=== PATIENT | female | born 1945 | race Caucasian/White ===

== ENCOUNTER → 2018-04-28 08:53 | Outpatient (CLI) | payer MEDICARE, SELFPAY ==
--- NOTE | 2018-04-28 09:02 | CA_ITS ---
PROCEDURE: 2-D M-mode and color Doppler study INDICATIONS FOR THE TEST: Chest pain COPD Heart Murmur Tobacco Smoking Palpitations Fatigue Syncope Edema+ Hypertension+Diabetes Mellitus Rheumatic Fever SOB + GONZALES Obesity Hyperlipidemia+ Family History HD Additional History PATIENT INFORMATION HEIGHT: 61 WEIGHT:175 GENDER: Female B/P:143/62 2-D/M-MODE INTERPRETATION: 2-D MEASUREMENTS OBSERVED VALUES IN CMS Right Ventricular Dimension (RVDd) 2.0 Interventricular Septum (Thickness)(IVsd) 1.3 Left Ventricular Internal Dimensions(LVIDd) 4.2 Left Ventricular Posterior Wall (Thickness)(LVPWd) 1.1 Aortic Root 2.9 Aortic Cusp Separation 1.7 Left Atrial Dimensions (LAD) 3.7 2D 1. Left atrium is qualitatively moderately enlarged, left ventricle is normal size, mild concentric left ventricular hypertrophy, visually estimated ejection fraction 55% with no regional wall motion abnormality. 2. The right atrium and right ventricle are normal size and contractility. 3. The aortic valve is thickened and calcified leaflet continue to display mobility. 4. The mitral valve has dense mitral calcification, there is no mitral stenosis. 5. The tricuspid valve is grossly normal. 6. The pulmonic valve is poorly visualized. 7. No significant pericardial effusion noted. DOPPLER INTERROGATION: Doppler interrogation of the aortic, mitral and tricuspid valvular presence of mild aortic, mild mitral and tricuspid regurgitation, tricuspid regurgitation jet velocity is inadequate for calculation of the right ventricular systolic pressure, grade 1 diastolic dysfunction seen with tissue Doppler evidence of raised left atrial pressure. CONCLUSION: 1. Moderately enlarged left atrium, normal left ventricular size, mild concentric left ventricular hypertrophy, visually estimated ejection fraction 55% with no regional wall motion abnormality, grade 1 diastolic dysfunction seen with tissue Doppler evidence of raised left atrial pressure. 2. Mild mitral and tricuspid regurgitation. 3. No significant pericardial effusion noted.
--- NOTE | 2018-04-28 09:02 | US_ITS ---
US Arterial Ankle Brachial Ind History: Bilateral rest pain, skin color changes of the toes ITS.REASON: discoloration in bilateral lower extremities ORDERING PHYSICIAN: Hal Love MD PATIENT AGE: 72 years TECHNIQUE: Segmental pressures obtained of both right and left leg. These are compared to brachial blood pressure to yield index at each level sampled including summary ANTOINE. The data sheets from the procedure are available in PACS FINDINGS Rest study only performed today No prior studies available for comparison. Blood pressures reported are in millimeters mercury. RIGHT LEG ANTOINE = 0.94. RIGHT LEG TBI=0.45 Brachial BP: 185 Thigh BP: 181 Calf BP: 174 Ankle PT: 174 Ankle DP : 184 Digit =83 LEFT LEG ANTOINE = 1.05 LEFT LEG TBI= 0.42 Brachial BPD: 180 Thigh BP: 176 Calf BP: 193 Ankle PT:194 Ankle DP: 178 Digit = 78 Pulses and waveforms: Normal IMPRESSION: The ABIs as reported above are within normal limits. Waveforms and pulses are also unremarkable. The TBI' s are low bilaterally suggesting small vessel disease
== END ==
PROVIDERS: PCP Internal Medicine; Visit Provider Internal Medicine
DX: G62.9 Polyneuropathy, unspecified (principal); I73.9 Peripheral vascular disease, unspecified; L81.9 Disorder of pigmentation, unspecified; R06.09 Other forms of dyspnea; I10 Essential (primary) hypertension; R00.2 Palpitations
CPT/HCPCS: 93306; 93922

== ENCOUNTER → 2020-07-01 07:51 | Outpatient (CLI) | payer MEDICARE, SELFPAY ==
--- NOTE | 2020-07-01 07:57 | US_ITS ---
APPROVED REPORT Exam Type: Lower Extremity Segmental Pressures Tobacco Packing Machine Operator: Alicia Santos RVT Indications Claudication: Bilaterally Non-healing Ulcer: Bilaterally Rest Pain: Bilaterally Numbness/Tingling ULCERS ELIZABETH 2ND TOES, PURPLE COLOR TO TIPS OF ELIZABETH GREAT TOES Risk Factors Hypertension Hyperlipidemia Obesity Pressures/Indices Right Indices Left Indices Brachial 160.00 mmHg Brachial 148.00 mmHg Low Thigh 169.00 mmHg 1.06 Low Thigh 172.00 mmHg 1.08 Calf 188.00 mmHg 1.18 Calf 181.00 mmHg 1.13 Ankle(PT) 161.00 mmHg 1.01 Ankle(PT) 162.00 mmHg 1.01 Ankle(DP) 173.00 mmHg 1.08 Ankle(DP) 148.00 mmHg 0.93 Digit 58.00 mmHg 0.36 Digit 44.00 mmHg 0.28 Findings RT ANTOINE:1.08 LT ANTOINE:1.01 RT TBI:0.36 LT TBI:0.28 NORMAL PULSES BILATERAL DAMPENED WAVEFORMS BILATERAL Conclusion RT ANTOINE:1.08 LT ANTOINE:1.01 RT TBI:0.36 LT TBI:0.28 NORMAL PULSES BILATERAL DAMPENED WAVEFORMS BILATERAL Low TBI suggesting small vessel disease Electronically signed by : Gianni Colon MD 07/01/2020 16:43:30
== END ==
PROVIDERS: PCP Internal Medicine; Visit Provider Internal Medicine
DX: I73.9 Peripheral vascular disease, unspecified (principal)
CPT/HCPCS: 93923

== ENCOUNTER → 2020-07-29 08:49 | Outpatient (POV) | payer MEDICARE, SELFPAY | PROVIDERS: Visit Provider Dermatology | DX: Z00.00 Encounter for general adult medical examination without abnormal findings (principal) ==

== ENCOUNTER → 2021-02-17 12:11 | Outpatient (CLI) | payer MEDICARE, SELFPAY ==
[2021-02-17 13:56] LABS: Basophils # 0.1 K/mm3 (0-0.2); Basophils % 1.3 % (0.1-2.0); Eosinophils # 0.5 K/mm3 (0.0-0.4); Eosinophils % 5.6 % (0.1-12.0); Hematocrit 37.4 % (37.0-47.0); Hemoglobin 12.2 g/dL (12.2-16.2); Lymphocytes # 2.4 K/mm3 (0.7-4.5); Lymphocytes % 27.5 % (10-50); Mean Corpuscular HGB Conc 32.6 g/dL (31.8-35.4); Mean Corpuscular Hemoglobin 30.4 pg (27.0-31.2); Mean Corpuscular Volume 93.3 fl (81-99); Mean Platelet Volume 9.7 fl (7.4-10.4); Monocytes # 0.5 K/mm3 (0.1-1.0); Monocytes % 5.7 % (1.7-9.3); Neutrophils # 5.2 K/mm3 (1.8-7.8); Platelet Count 297 K/mm3 (142-424); Red Blood Count 4.01 M/mm3 (4.20-5.40); Red Cell Distribution Width 13.4 % (11.5-17.5); White Blood Count 8.6 K/mm3 (4.8-10.8)
[2021-02-17 14:35] LABS: Chloride 100 mmol/L (98-107)
[2021-02-17 14:36] LABS: Potassium 4.1 mmoL/L (3.5-5.1); Sodium 139 mmol/L (136-145)
[2021-02-17 14:38] LABS: Alanine Aminotransferase 12 U/L (12-78); Albumin Level 3.9 g/dl (3.5-5.0); Albumin/Globulin Ratio 1.4 (1.1-1.8); Alkaline Phosphatase 95 U/L (38-126); Anion Gap 14.1 mEq/L (5-15); Aspartate Amino Transferase 24 U/L (14-36); Bilirubin,Total 0.2 mg/dl (0.2-1.3); Blood Urea Nitrogen 20 mg/dl (7-17); Carbon Dioxide 29 mmol/L (22.0-30.0); Cholesterol 269 mg/dl (140-200); Estimated Glomerular Filt Rate 70 ml/min (>60); GFR (African American) 84 ML/MIN (>60); Globulin 2.8 g/dL (1.3-3.2); Total Protein,Serum 6.7 g/dl (6.3-8.2); Triglycerides 248 mg/dl (30-150); VLDL Cholesterol 50 mg/dL (0-40)
[2021-02-17 14:39] LABS: Calcium 9.1 mg/dl (8.4-10.2); Chol/HDL Ratio 7.3 (1-3.5); Glucose 93 mg/dl (74-100); HDL Cholesterol 37 mg/dl (40-60)
== END ==
PROVIDERS: Visit Provider Internal Medicine
DX: I11.0 Hypertensive heart disease with heart failure (principal); I50.30 Unspecified diastolic (congestive) heart failure; E78.5 Hyperlipidemia, unspecified; M41.50 Other secondary scoliosis, site unspecified; G60.9 Hereditary and idiopathic neuropathy, unspecified
CPT/HCPCS: 80053; 80061; 85025

== ENCOUNTER → 2021-08-27 06:12 | Outpatient (CLI) | payer MEDICARE, SELFPAY ==
--- NOTE | 2021-08-27 | CA_ITS ---
APPROVED REPORT Exam: Pharmacologic Technologist: Manasa Gottlieb, Ht: 5 ft 0 in Wt: 159 lbs BSA: 1.69 m2 HR: 58 bpm BP: 151/60 mmHg Rhythm: sinus triston, T wave abn in leads 3, aVF Medical History Medical History: HTN Medications: Omeprazole,,,,, Carvedilol,,,,, AmiTRIPTYLINE,,,,, ReQUIP,,,,, Furosemide,,,,, Carbidopa levodopa,,,,, Ciclopirox,,,,, Cardiac Risk Factors: HTN, FHX of CAD Stress Test Details Test: LEXISCAN HR Resting HR: 61 bpm Max Heart Rate (APMHR): 142.605263 bpm Max HR Achieved: 74 bpm Target HR (85% APMHR): 120.294920 bpm % of APMHR: 52.11 Recovery HR: 71 bpm BP Resting BP: 151/60 mmHg Max BP: 157/59 mmHg Recovery BP: 154.0/59.0 mmHg ECG Resting ECG: sinus triston, T wave abn in leads 3, aVF Clinical Exercise duration: 04:03 min Highest Stage Achieved: Exercise capacity: 1.0 METs Stress ECG Conclusion During lexiscan pt experinced mild chest tightness, SOA, and CLEANING. No arrhythmias noted. No significant ST changes. Unremarkable lexiscan stress. Myoview images reported separately. Test Summary REST . . . . . . . Sitting REST 03:49 . . 61 . 151/ 60 . . Stage 1 01:00 . . 69 . . . . Stage 2 01:00 . . 74 . 140/ 55 . . Stage 3 01:00 . . 73 . . . . Stage 4 01:00 . . 72 . 148/ 57 . . Stage 4 01:03 . . 72 . 148/ 57 . Stop exercise at 04:03 RECOVERY 01:00 . . 71 . 142/ 60 . . RECOVERY 02:00 . . 69 . 142/ 60 . . RECOVERY 03:00 . . 69 . 154/ 59 . . RECOVERY 03:50 . . 68 . 157/ 59 . . Electronically signed by : Juno Iqbal MD 08/28/2021 10:41:21
--- NOTE | 2021-08-27 06:22 | NM_ITS ---
APPROVED REPORT Exam: Nuclear Stress Test Indication: short of breath Patient Location: Outpatient Stress Tech: Manasa FARAH Tech:DOM Denise RT(R)(N) Ht: 5 ft 0 in Wt: 156 lbs Bra Size: 40d HR: 61 bpm BP: 151/60 mmHg BSA: 1.68 m2 TID: 61 Procedure: Patient received a 0.4 mg of intravenous Lexiscan, resting heart rate 61 bpm, resting blood pressure 151/60 mmHg, with Lexiscan maximum heart rate achived was 74 bpm which is Less than 85 % of the maximum predicted heart rate and blood pressure was 157/59 mmHg. With Lexiscan, patient denied any complaint of chest pain. Electrocardiogram Resting electrocardiogram shows sinus rhythm, with Lexiscan there is less than 1.[address] segment depression noted from the baseline EKG. The EKG portion of the Lexiscan is nondiagnostic. Cardiac Stress and Resting SPECT Images: Cardiac Stress and Resting SPECT images were obtained using technetium 99m Myoview 30.6 mCi stress and 9.88 mCi at rest. Gated SPECT analysis of segmental wall motion and calculation of the ejection fraction also done. Prone images were not obtained. Cardiac stress and rest SPECT images show uniform myocardial activity without segmental perfusion abnormality, computer derived ejection fraction is 65% with no regional wall motion abnormality, right ventricle is normal size and contractility. Conclusion: 1. The EKG portion of the Lexiscan is nondiagnostic. 2. No scintigraphic evidence of reversible ischemia seen, computer derived ejection fraction is over 65% with no regional wall motion abnormality, right ventricle is normal size and contractility. 3. Normal Lexiscan Myoview study. Electronically signed by : Juno Iqbal MD 08/28/2021 10:43:42
--- NOTE | 2021-08-27 08:42 | CA_ITS ---
APPROVED REPORT EXAM: Comprehensive 2D, Doppler, and color-flow Echocardiogram [employer] Founder: Farhana Barnes CRT Ht: 5 ft 0 in Wt: 159lbs BSA: 1.69 BP: 158/72 mmHg Indications: Congestive Heart Failure, Shortness of Breath, Hyperlipidemia, Hypertension/HDD 2D Dimensions LVOT 1.60 cm (M/F) 1.5-2.5 LA Volume 53.50 mL LA Volume Index 31.70 mL/m2 (M/F) 16-34 M-Mode Dimensions RVDd 2.69 cm (0.9-2.6) LA Diam 3.86 cm (1.9-4.0) LVDd 4.72 cm (3.5-5.7) Ao Diam 3.27 cm (2.0-3.7) LVDs 3.15 cm (3.5-5.7) IVSd 1.27 cm (0.6-1.1) PWd 0.62 cm (0.6-1.1) EF (Teich) 61.90% FS 33.30% EDV (Teich) 103.40 mL TAPSE 1.94 (<1.7) ESV (Teich) 39.40 mL LV Diastology E Decel Time 380.00 (160-240 msec) E/A Ratio 0.47 MED E' 4.70 (< 7 cm/sec) MED A' 7.90 cm/s E'/MED E' Ratio 15.51 (>14) LAT E' 5.60 (<10 cm/sec) LAT A' 8.40 cm/s E/LAT E' Ratio 13.02 (>14) Aortic Valve AI PHT 566.00 ms AO Peak GR. 9.40 mmHg Mitral Valve MV A Velocity 155.00 (40-130 cm/s) E/A Ratio 0.47 MV Decel. Time 380.00 (160-240 ms) Pulmonary Valve PV Peak Velocity 70.00 (50-150 cm/s) Tricuspid Valve TR P. Velocity 197.00 cm/s RAP Estimate 10.00 mmHg RVSP 25.60 mmHg Left Ventricle Left atrium is mildly enlarged, left ventricle is normal size, mild concentric left ventricular hypertrophy, estimated ejection fraction 55% with no regional wall motion abnormality, grade 1 diastolic dysfunction seen without tissue Doppler evidence of raise left atrial pressure. Right Ventricle Right atrium and right ventricle are normal size and contractility. Aortic Valve Aortic valve is thickened and calcified without aortic stenosis, there is trace aortic insufficiency. Mitral Valve Mitral valve has mitral calcification, there is no mitral stenosis, there is mild mitral regurgitation. Tricuspid Valve Tricuspid valve grossly normal, there is mild tricuspid regurgitation, tricuspid regurgitation jet velocity is inadequate for calculation of the right ventricular systolic pressure. Pulmonic Valve Pulmonic valve is poorly visualized. Great Vessels Aortic root is normal size. Inferior vena cava normal size with normal inspiratory collapse. Pericardium No significant pericardial effusion noted. Conclusion 1. Normal left ventricular size, mild concentric left ventricular hypertrophy, estimated ejection fraction 55% with no regional wall motion abnormality, grade 1 diastolic dysfunction seen without tissue Doppler evidence of raise left atrial pressure. 2. Thickened and calcified aortic valve without aortic stenosis, there is trace aortic insufficiency. 3. Mild mitral and tricuspid regurgitation. 4. No significant pericardial effusion noted. 5. Inferior vena cava normal size with normal inspiratory collapse. Electronically signed by : Juno Iqbal MD 08/28/2021 13:28:28
== END ==
PROVIDERS: PCP Internal Medicine; Visit Provider Nurse Practitioner Family
DX: R06.09 Other forms of dyspnea; I50.21 Acute systolic (congestive) heart failure
CPT/HCPCS: 78452; 93017; 93306; A9502; J2785

== ENCOUNTER → 2022-06-29 09:53 | Outpatient (CLI) | payer MEDICARE, SELFPAY ==
[2022-06-29 10:40] LABS: Basophils # 0.1 K/mm3 (0-0.2); Basophils % 1.2 % (0.1-2.0); Eosinophils # 0.4 K/mm3 (0.0-0.4); Eosinophils % 4.1 % (0.1-12.0); Hematocrit 41.2 % (37.0-47.0); Hemoglobin 13.1 g/dL (12.2-16.2); Lymphocytes # 2.2 K/mm3 (0.7-4.5); Lymphocytes % 23.9 % (10-50); Mean Corpuscular HGB Conc 31.7 g/dL (31.8-35.4); Mean Corpuscular Hemoglobin 28.9 pg (27.0-31.2); Mean Corpuscular Volume 91.4 fl (81-99); Mean Platelet Volume 8.4 fl (7.4-10.4); Monocytes # 0.5 K/mm3 (0.1-1.0); Monocytes % 5.6 % (1.7-9.3); Neutrophils % 65.2 % (37.0-80.0); Platelet Count 335 K/mm3 (142-424); Red Blood Count 4.51 M/mm3 (4.20-5.40); Red Cell Distribution Width 13.3 % (11.5-17.5); White Blood Count 9.3 K/mm3 (4.8-10.8)
[2022-06-29 11:07] LABS: Alanine Aminotransferase 18 U/L (12-78); Albumin Level 4.4 g/dl (3.5-5.0); Alkaline Phosphatase 133 U/L (38-126); Anion Gap 13.2 mEq/L (5-15); Aspartate Amino Transferase 27 U/L (14-36); Bilirubin,Indirect 0.6 mg/dL (0.0-0.9); Bilirubin,Total 0.6 mg/dl (0.2-1.3); Bilirubin,Unconjugated 0.6 mg/dL (0.0-1.1); Blood Urea Nitrogen 17 mg/dl (7-17); Carbon Dioxide 27 mmol/L (22.0-30.0); Chloride 101 mmol/L (98-107); Chol/HDL Ratio 5.7 (1-3.5); Cholesterol 285 mg/dl (140-200); Estimated Glomerular Filt Rate 81 ml/min (>60); GFR (African American) 98 ML/MIN (>60); Glucose 90 mg/dl (74-100); HDL Cholesterol 50 mg/dl (40-60); Magnesium 1.9 mg/dl (1.6-2.3); Potassium 4.2 mmoL/L (3.5-5.1); Sodium 137 mmol/L (136-145); Total Protein,Serum 7.2 g/dl (6.3-8.2); Triglycerides 233 mg/dl (30-150); VLDL Cholesterol 47 mg/dL (0-40)
[2022-06-29 11:18] LABS: Direct LDL Cholesterol 178.55 mg/dL (100-129)
[2022-06-29 11:22] LABS: Free T4 (Free Thyroxine) 1.07 ng/dl (0.78-2.19)
[2022-06-29 11:36] LABS: Thyroid Stimulating Hormone 2.35 uIU/mL (0.465-4.68)
== END ==
PROVIDERS: PCP Internal Medicine; Visit Provider Nurse Practitioner
DX: E78.2 Mixed hyperlipidemia (principal); I10 Essential (primary) hypertension; I50.33 Acute on chronic diastolic (congestive) heart failure
CPT/HCPCS: 36415; 80048; 80061; 80076; 83735; 84439; 84443; 85025

== ENCOUNTER → 2022-10-22 13:01 | Outpatient (CLI) | payer MEDICARE, SELFPAY ==
[2022-10-22 15:56] LABS: Basophils % 0.4 % (0.1-2.0); Eosinophils # 0.7 K/mm3 (0.0-0.4); Hematocrit 38.4 % (37.0-47.0); Hemoglobin 12.3 g/dL (12.2-16.2); Lymphocytes # 2.7 K/mm3 (0.7-4.5); Lymphocytes % 28.7 % (10-50); Mean Corpuscular HGB Conc 31.9 g/dL (31.8-35.4); Mean Corpuscular Hemoglobin 28.4 pg (27.0-31.2); Mean Corpuscular Volume 88.9 fl (81-99); Mean Platelet Volume 10.5 fl (7.4-10.4); Monocytes # 0.6 K/mm3 (0.1-1.0); Neutrophils # 5.4 K/mm3 (1.8-7.8); Neutrophils % 57.9 % (37.0-80.0); Platelet Count 290 K/mm3 (142-424); Red Blood Count 4.32 M/mm3 (4.20-5.40); Red Cell Distribution Width 14.4 % (11.5-17.5); White Blood Count 9.3 K/mm3 (4.8-10.8)
[2022-10-22 16:24] LABS: Alanine Aminotransferase 11 U/L (12-78); Albumin Level 4.2 g/dl (3.5-5.0); Albumin/Globulin Ratio 1.4 (1.1-1.8); Alkaline Phosphatase 131 U/L (38-126); Anion Gap 12.6 mEq/L (5-15); Aspartate Amino Transferase 28 U/L (14-36); Bilirubin,Total 0.5 mg/dl (0.2-1.3); Blood Urea Nitrogen 23 mg/dl (7-17); Calcium 8.9 mg/dl (8.4-10.2); Carbon Dioxide 27 mmol/L (22.0-30.0); Chloride 104 mmol/L (98-107); Chol/HDL Ratio 6.5 (1-3.5); Cholesterol 286 mg/dl (140-200); Estimated Glomerular Filt Rate 60 ml/min (>60); GFR (African American) 73 ML/MIN (>60); Globulin 2.9 g/dL (1.3-3.2); Glucose 73 mg/dl (74-100); HDL Cholesterol 44 mg/dl (40-60); Potassium 4.6 mmoL/L (3.5-5.1); Sodium 139 mmol/L (136-145); Total Protein,Serum 7.1 g/dl (6.3-8.2); Triglycerides 228 mg/dl (30-150); VLDL Cholesterol 46 mg/dL (0-40)
[2022-10-22 16:35] LABS: Direct LDL Cholesterol 189.33 mg/dL (100-129)
[2022-10-22 16:41] LABS: 25-OH Vitamin D, Total 37.3 ng/mL (30-100)
== END ==
PROVIDERS: PCP Internal Medicine; Visit Provider Internal Medicine
DX: I50.32 Chronic diastolic (congestive) heart failure (principal); E55.9 Vitamin D deficiency, unspecified; I10 Essential (primary) hypertension; E78.5 Hyperlipidemia, unspecified; G60.9 Hereditary and idiopathic neuropathy, unspecified; G25.81 Restless legs syndrome; M15.0 Primary generalized (osteo)arthritis; M41.50 Other secondary scoliosis, site unspecified
CPT/HCPCS: 80053; 80061; 82306; 85025

== ENCOUNTER → 2023-04-13 13:51 | Outpatient (CLI) | payer MEDICARE, SELFPAY ==
[2023-04-13 16:09] LABS: Alanine Aminotransferase 12 U/L (12-78); Albumin Level 4.1 g/dl (3.5-5.0); Albumin/Globulin Ratio 1.5 (1.1-1.8); Alkaline Phosphatase 155 U/L (38-126); Aspartate Amino Transferase 31 U/L (14-36); Bilirubin,Total 0.4 mg/dl (0.2-1.3); Blood Urea Nitrogen 16 mg/dl (7-17); Calcium 8.5 mg/dl (8.4-10.2); Carbon Dioxide 26 mmol/L (22.0-30.0); Chloride 101 mmol/L (98-107); Chol/HDL Ratio 7.4 (1-3.5); Cholesterol 274 mg/dl (140-200); Estimated Glomerular Filt Rate 69 ml/min (>60); GFR (African American) 84 ML/MIN (>60); Globulin 2.8 g/dL (1.3-3.2); Glucose 84 mg/dl (74-100); HDL Cholesterol 37 mg/dl (40-60); Potassium 3.9 mmoL/L (3.5-5.1); Total Protein,Serum 6.9 g/dl (6.3-8.2); Triglycerides 195 mg/dl (30-150); VLDL Cholesterol 39 mg/dL (0-40)
[2023-04-13 16:18] LABS: Anion Gap 10.9 mEq/L (5-15); Sodium 134 mmol/L (136-145)
[2023-04-13 16:20] LABS: Direct LDL Cholesterol 187.55 mg/dL (100-129)
== END ==
LOC: LAB.DROPOF 13:52
PROVIDERS: PCP Internal Medicine; Visit Provider Internal Medicine
DX: I50.32 Chronic diastolic (congestive) heart failure (principal); I11.0 Hypertensive heart disease with heart failure; E78.5 Hyperlipidemia, unspecified
CPT/HCPCS: 80053; 80061

== ENCOUNTER 2023-05-13 12:13 | Outpatient (CLI) | payer MEDICARE, SELFPAY ==
[2023-05-13 14:51] LABS: Anion Gap 14.4 mEq/L (5-15); Blood Urea Nitrogen 18 mg/dl (7-17); Calcium 8.9 mg/dl (8.4-10.2); Carbon Dioxide 27 mmol/L (22.0-30.0); Chloride 102 mmol/L (98-107); Estimated Glomerular Filt Rate 69 ml/min (>60); GFR (African American) 84 ML/MIN (>60); Glucose 80 mg/dl (74-100); Potassium 4.4 mmoL/L (3.5-5.1); Sodium 139 mmol/L (136-145)
== END 2023-05-13 23:59 ==
LOC: LAB.DROPOF 12:14
PROVIDERS: PCP Internal Medicine; Visit Provider Internal Medicine
DX: I10 Essential (primary) hypertension (principal)
CPT/HCPCS: 80048

== ENCOUNTER 2023-05-31 14:43 | Outpatient (POV) | payer MEDICARE, SELFPAY | END 2023-05-31 23:59 | disposition home or self-care (01) | LOC: SC 14:44 | PROVIDERS: PCP Internal Medicine; Visit Provider Dermatology | DX: Z00.00 Encounter for general adult medical examination without abnormal findings (principal) ==

== ENCOUNTER 2023-09-16 09:38 | Outpatient (CLI) | payer MEDICARE, SELFPAY ==
--- NOTE | 2023-09-16 | CA_ITS ---
APPROVED REPORT Exam: Pharmacologic Technologist: Manasa Gottlieb, Ht: 5 ft 0 in Wt: 155 lbs BSA: 1.67 m2 HR: 59 bpm BP: 161/66 mmHg Rhythm: NSR, 1 DEGREE AVB Indications: Dyspnea, ChF Medical History Medical History: Hyperlipidemia Medications: Omeprazole,,,,, Zetia,,,,, Carvedilol,,,,, Ropinirole,,,,, AmiTRIPTYLINE,,,,, EnTRESTO,,,,, Furosemide,,,,, Carbidopa/LEvodopa,,,,, Cardiac Risk Factors: Hyperlipidemia Stress Test Details Test: LEXISCAN HR Resting HR: 60 bpm Max Heart Rate (APMHR): 140 bpm Max HR Achieved: 72 bpm Target HR (85% APMHR): 119 bpm % of APMHR: 51 Recovery HR: 71 bpm BP Resting BP: 161/66 mmHg Max BP: 161/66 mmHg Recovery BP: 160.0/61.0 mmHg ECG Resting ECG: NSR, 1 DEGREE AVB Stress ECG: NO SIGNIFICANT ST CHANGES Arrhythmia: NONE Clinical Exercise duration: 04:18 min Highest Stage Achieved: Exercise capacity: 1.0 METs Stress ECG Conclusion PT HAD SOA AND HEADACHE NO CP NO SIGNIFICANT ST CHANGES CONCLUSION: UNREMARKABLE LEXISCAN STRESS. MYOVIEW IMAGES ARE REPORTED SEPARATELY. Test Summary REST . . . . . . . Sitting REST 04:03 . . 60 . 161/ 66 . . Stage 1 01:00 . . 65 . . . . Stage 2 01:00 . . 72 . . . . Stage 3 01:00 . . 71 . 140/ 53 . . Stage 4 01:00 . . 71 . 153/ 60 . . Stage 4 01:18 . . 71 . 153/ 60 . Stop exercise at 04:18 RECOVERY 01:00 . . 72 . 157/ 61 . . RECOVERY 02:00 . . 71 . 157/ 61 . . RECOVERY 03:00 . . 70 . 157/ 71 . . RECOVERY 04:00 . . 70 . 157/ 71 . . RECOVERY 04:28 . . 70 . 160/ 61 . . Electronically signed by : Diane Gay MD 09/20/2023 15:56:43
--- NOTE | 2023-09-16 09:38 | CA_ITS ---
APPROVED REPORT EXAM: Comprehensive 2D, Doppler, and color-flow Echocardiogram Director Of Claims: Erika Rm RT(R) Ht: 5 ft 0 in Wt: 155lbs BSA: 1.67 BP: 144/58 mmHg Indications: SOB, CHF, HTN, hyperlipidemia. 2D Dimensions LVEF (Ernandez's) 62.30 % F: 54 - 74 LV Volume 77.70 mL F: 46 - 106 LV Volume Index 46.5 mL/m2 F: 29 - 61 LA Volume 41.30 mL LA Volume Index 24.73 mL/m2 (M/F) 16-34 EF AP4 60.30 % EF AP2 64.5 % EF BP 62.3 % GL Strain -17.7 % M-Mode Dimensions RVDd 1.57 cm (0.9-2.6) LA Diam 4.59 cm (1.9-4.0) LVDd 5.22 cm (3.5-5.7) LVDs 3.86 cm (3.5-5.7) IVSd 0.97 cm (0.6-1.1) PWd 0.97 cm (0.6-1.1) EF (Teich) 50.80% FS 26.10% EDV (Teich) 130.70 mL ESV (Teich) 64.30 mL LV Diastology E Decel Time 333 (160-240 msec) E/A Ratio 0.7 Aortic Valve AoV Peak Colin. 163.0 (50-130 cm/s) AO Peak GR. 10.70 mmHg AO Mean GR. 5.20 (<5 mmHg) AO VTI 37.0 (18-25 cm) Mitral Valve MV E Max Colin. 97.0 (40-130 cm/s) MV A Velocity 138.0 (40-130 cm/s) E/A Ratio 0.70 MV PHT 98.0 ms Left Ventricle The left ventricle is normal size. The left ventricular systolic function is normal. The left ventricular ejection fraction is within the normal range. There is increased LV wall thickness. There is normal LV segmental wall motion. Transmitral Doppler flow pattern suggests impaired LV relaxation. LVEF is 60%. Right Ventricle The right ventricle is normal size. The right ventricular systolic function is normal. Atria Left atrium is mildly dilated. Right atrium is mildly dilated. There is no Doppler evidence of interatrial shunt. Aortic Valve The aortic valve is mildly thickened. There is no aortic valvular stenosis. Mild aortic regurgitation. Mitral Valve Moderate mitral annular calcification. The mitral valve leaflets are mildly thickened. No evidence of mitral valve stenosis. Mean MV gradient 3 mmHg (HR 72 bpm). Mild mitral regurgitation. Tricuspid Valve The tricuspid valve leaflets are thin and pliable. Trace tricuspid regurgitation. There is insufficient TR jet to estimate RVSP. Pulmonic Valve The pulmonary valve is normal in structure. Trace pulmonic regurgitation. Great Vessels The aortic root is normal in size. The ascending aorta is normal in size. IVC is normal in size and collapses >50% with inspiration. Pericardium There is no pericardial effusion. Other Information Study Quality: Fair Conclusion Normal biventricular systolic function. Biatrial dilation. Mild AI, mild MR. Electronically signed by : Diane Gay MD 09/22/2023 00:25:03
--- NOTE | 2023-09-16 10:12 | NM_ITS ---
APPROVED REPORT Exam: Nuclear Stress Test Indication: CHF, HTN, FM HX, C.P., SOB, DIZZINESS, FATIGUE Patient Location: Outpatient Stress Tech: Manasa Gottlieb [place] Tech:DOM Bundy RT (R)(N)(M) Ht: 5 ft 1 in Wt: 150 lbs Bra Size: C HR: 59 bpm BP: 161/66 mmHg BSA: 1.67 m2 TID: 1.18 BMI: 28.3 History: CHF, HTN, FM HX, C.P., SOB, DIZZINESS, FATIGUE PT COULD NOT LAY ON STOMACH FOR PRONE IMAGES Procedure: Patient received 0.0 mg of intravenous Lexiscan, resting heart rate 59 bpm, resting blood pressure 161/66 mmHg, with Lexiscan maximum heart rate achieved was 72 bpm which is % of the maximum predicted heart rate and blood pressure was 153/60 mmHg. With Lexiscan, patient denied any complaint of chest pain. Cardiac Stress and Resting SPECT Images: Cardiac Stress and Resting SPECT images were obtained using technetium 99m Myoview 30.7 mCi stress and 10.08 mCi at rest. The patient could not lie on her abdomen. Therefore, prone stress imaging could not be performed. This may affect the diagnostic interpretation of the study findings. Resting and stress imaging in supine positions demonstrate a small sized, mild, reversible perfusion defect in the basal inferior LV wall. Gated imaging demonstrates normal global and regional LV systolic function. LVEF is calculated at 70%. Conclusion: Small sized, mild, reversible perfusion defect in the basal inferior LV wall. Findings are suggestive of reversible ischemia. Gated imaging demonstrates normal global and regional LV systolic function. LVEF is calculated at 70%. Electronically signed by : Diane Gay MD 09/20/2023 16:01:47
[2023-09-16] MEDS: REGADENOSON 0.4MG/5ML SYRINGE 0.400000000000000022 MG IV (12:50)
[2023-09-16] MEDS: SODIUM CHLORIDE 0.9% 10ML SYR (RAD ONLY) 10 ML IV ×2 (13:22)
[2023-09-16] MEDS: ISOTOPE MYOVIEW (PER STUDY) 1 DOSE IV (13:22)
== END 2023-09-16 23:59 | disposition home or self-care (01) ==
LOC: RT 09:38
PROVIDERS: PCP Internal Medicine; Visit Provider Nurse Practitioner Family
DX: R06.09 Other forms of dyspnea (principal); I50.33 Acute on chronic diastolic (congestive) heart failure; E78.2 Mixed hyperlipidemia; I10 Essential (primary) hypertension
CPT/HCPCS: 78452; 93017; 93018; 93306; A9502; J2785

== ENCOUNTER 2023-10-03 08:27 | Day surgery (SDC) | payer MEDICARE, SELFPAY ==
[2023-10-03] VITALS (12 sets, daily range): BP systolic 105–136; BP diastolic 47–69; PULSE 51–60; RESP 16–18; TEMP 36.6; O2SAT 91–100; BMI 28.9
--- NOTE | 2023-10-03 07:13 | IR_ITS ---
APPROVED REPORT Patient Location: Outpatient PROCEDURES Selective coronary angiogram Drug-eluting stent deployment to the proximal LAD Drug-eluting stent deployment to the first obtuse marginal artery off the dominant circumflex artery INDICATION Coronary artery disease, Angina pectoris, Abnormal Myoview Informed consent was obtained prior to the procedure. COMPLICATIONS NONE Estimated Blood Loss: LESS THAN 10 ML TECHNIQUE One percent lidocaine used to anesthetize the right anterior aspect of the wrist. The right radial artery was accessed via the Seldinger technique. A 6 Latv[place] sheath was placed in the right radial artery. 2.5 mg of Verapamil, 800 mcg of nitroglycerin, 1mg Lidocaine and 5000 U Heparin were given through the arterial sheath. The papa catheter was also used to perform selective coronary angiogram. At the end of the procedure therapeutic heparin was administered giving a therapeutic ACT and the guide catheter was placed in the left main artery followed by a Choice PT extra-support wire placed on the LAD. A 3 mm x 26 mm [place] frontier stent was deployed at 14 jakub reducing the stenosis to 0%. Excellent angiographic results were obtained with JOSÉ MIGUEL-3 flow being present before and after the procedure. The wire was then placed down the circumflex arteries first obtuse marginal artery and a 3 mm x 22 mm Stas frontier stent was deployed at 14 jakub. Residual stenosis was identified therefore a 3 mm x 12 mm noncompliant balloon was deployed in the first obtuse marginal artery at 20 jakub to post dilate. JOSÉ MIGUEL-3 flow was present before and after the procedure. After achieving excellent angiograph results apparatus was removed the sheath was removed and hemostasis was achieved using TR banding patient was transferred to the postop putting in stable condition ANGIOGRAPHIC RESULTS The left main artery Normal The left anterior descending artery Has a proximal concentric 80% stenosis followed by an additional 70% stenosis with an additional mid vessel 40% stenosis The circumflex artery Large dominant with proximal 10% luminal irregularities and 70 and 80% stenosis in the first obtuse marginal artery The right coronary artery Nondominant yet still large with mild 10 to 20% luminal irregularities The DYE ventriculogram reveals Not performed The left ventricular end-diastolic pressure Not measured IMPRESSION Severe two-vessel coronary disease as described above Successful stent to the proximal LAD severe disease reduced to 0% with 1 drug-eluting stent Successful stent to the proximal to mid large first obtuse marginal artery of the dominant circumflex artery severe disease reduced to 0% with 1 drug-eluting stent PLAN 1. Plavix and aspirin 2. LDL less than 55 to be achieved with high intensity statin 3. Avoidance of tobacco products 4. Risk factor modification 5. Cardiac rehabilitation Electronically signed by : Hal Love MD 10/03/2023 12:31:43
[2023-10-03 09:32] LABS: Basophils # 0.1 K/mm3 (0-0.2); Basophils % 1.4 % (0.1-2.0); Eosinophils % 11.4 % (0.1-12.0); Hematocrit 40.6 % (37.0-47.0); Hemoglobin 12.7 g/dL (12.2-16.2); Lymphocytes % 24.5 % (10-50); Mean Corpuscular HGB Conc 31.2 g/dL (31.8-35.4); Mean Corpuscular Hemoglobin 29.7 pg (27.0-31.2); Mean Corpuscular Volume 95.4 fl (81-99); Mean Platelet Volume 9.4 fl (7.4-10.4); Monocytes # 0.6 K/mm3 (0.1-1.0); Monocytes % 6.6 % (1.7-9.3); Neutrophils # 4.7 K/mm3 (1.8-7.8); Neutrophils % 56.1 % (37.0-80.0); Platelet Count 272 K/mm3 (142-424); Red Blood Count 4.26 M/mm3 (4.20-5.40); Red Cell Distribution Width 13.8 % (11.5-17.5); White Blood Count 8.4 K/mm3 (4.8-10.8)
[2023-10-03 09:37] LABS: Chloride 101 mmol/L (98-107); Sodium 137 mmol/L (136-145)
[2023-10-03 09:38] LABS: Potassium 4.1 mmoL/L (3.5-5.1)
[2023-10-03 09:41] LABS: Anion Gap 14.1 mEq/L (5-15); Blood Urea Nitrogen 18 mg/dl (7-17); Calcium 9.4 mg/dl (8.4-10.2); Carbon Dioxide 26 mmol/L (22.0-30.0); Creatinine Clearance Estimated 48 mL/min (50-200); Estimated Glomerular Filt Rate 53 ml/min (>60); GFR (African American) 65 ML/MIN (>60); Glucose 96 mg/dl (74-100)
[2023-10-03] MEDS: HEPARIN 1,000 UNITS/ML 10ML VIAL (CATH LAB) 10000 UNIT IV (11:41)
[2023-10-03] MEDS: diphenhydrAMINE 50MG/ML VIAL 50 MG IV (11:41)
[2023-10-03] MEDS: VERAPAMIL 2.5MG/ML 2ML VIAL 2.5 MG IV (11:41)
[2023-10-03] MEDS: 0.9 % SODIUM CHLORIDE 500 ML 25 ML IV (11:41)
[2023-10-03] MEDS: HEPARIN 1,000 UNITS/500ML NS (CATH LAB) 3000 UNIT IV (11:41)
[2023-10-03] MEDS: LIDOCAINE 1% 10ML MDV 20 ML IJ (11:41)
[2023-10-03] MEDS: MIDAZOLAM HCL 1MG/1ML 5ML VIAL 1 MG IV (11:42)
[2023-10-03] MEDS: FENTANYL 100MCG/2ML VIAL 50 MCG IV (11:42)
[2023-10-03] MEDS: NITROGLYCERIN 800MCG/8ML SYR (CATH LAB) 800 MCG IA (11:42)
--- NOTE | 2023-10-03 12:41 | SUR.PHASEII ---
No DENNIS.ARB per MD
[2023-10-03] MEDS: IOPAMIDOL-370 (76%);100ML BOTTLE 90 ML IV (12:58)
[2023-10-03 13:00] LABS: CATHL Activated Clotting Time 255 SEC (74-125)
== END 2023-10-03 15:33 | disposition home or self-care (01) ==
PROVIDERS: PCP Internal Medicine; Visit Provider Internal Medicine
DX: R93.1 Abnormal findings on diagnostic imaging of heart and coronary circulation (principal); R06.09 Other forms of dyspnea; E78.2 Mixed hyperlipidemia; I50.33 Acute on chronic diastolic (congestive) heart failure; I11.0 Hypertensive heart disease with heart failure; Z79.899 Other long term (current) drug therapy; I25.118 Atherosclerotic heart disease of native coronary artery with other forms of angina pectoris
CPT/HCPCS: 80048; 85025; 85347; 92928; 93454; 99152; 99153; C1725; C1769; C1874; C9600; J1644; J2250; J3010; Q9967

== ENCOUNTER 2023-10-06 09:53 | Outpatient (CLI) | payer MEDICARE, SELFPAY ==
[2023-10-06 10:15] LABS: Basophils # 0.1 K/mm3 (0-0.2); Basophils % 1.4 % (0.1-2.0); Eosinophils % 10.2 % (0.1-12.0); Hematocrit 38.1 % (37.0-47.0); Lymphocytes # 1.6 K/mm3 (0.7-4.5); Lymphocytes % 16.8 % (10-50); Mean Corpuscular HGB Conc 31.5 g/dL (31.8-35.4); Mean Corpuscular Volume 95.4 fl (81-99); Mean Platelet Volume 9.6 fl (7.4-10.4); Monocytes # 0.6 K/mm3 (0.1-1.0); Monocytes % 6.6 % (1.7-9.3); Neutrophils # 6.3 K/mm3 (1.8-7.8); Platelet Count 246 K/mm3 (142-424); Red Cell Distribution Width 13.8 % (11.5-17.5); White Blood Count 9.7 K/mm3 (4.8-10.8)
[2023-10-06 10:33] LABS: Anion Gap 10.6 mEq/L (5-15); Blood Urea Nitrogen 14 mg/dl (7-17); Calcium 8.4 mg/dl (8.4-10.2); Carbon Dioxide 29 mmol/L (22.0-30.0); Chloride 101 mmol/L (98-107); Estimated Glomerular Filt Rate 53 ml/min (>60); GFR (African American) 65 ML/MIN (>60); Glucose 109 mg/dl (74-100); Potassium 3.6 mmoL/L (3.5-5.1); Sodium 137 mmol/L (136-145)
== END 2023-10-06 23:59 | disposition home or self-care (01) ==
LOC: LAB 09:57
PROVIDERS: PCP Internal Medicine; Visit Provider Internal Medicine
DX: I25.10 Atherosclerotic heart disease of native coronary artery without angina pectoris (principal); Z95.5 Presence of coronary angioplasty implant and graft
CPT/HCPCS: 36415; 80048; 85025

== ENCOUNTER 2023-11-10 10:23 | Outpatient (CLI) | payer MEDICARE, SELFPAY ==
--- NOTE | 2023-11-10 10:27 | CA_ITS ---
APPROVED REPORT EXAM: Limited 2D Echocardiogram Journeyman Plumber: Farhana Barnes CRT Ht: 5 ft 0 in Wt: 145lbs BSA: 1.63 BP: 92/41 mmHg Indications: CHF Diastolic , SOB, WEAKNESS 2D Dimensions Left Atrium 3.59 cm LVEF (Ernandez's) 54.00 % LVOT 1.47 cm (M/F) 1.5-2.5 LV Volume 65.20 mL EF AP4 53.30 % EF AP2 53.6 % EF BP 54.0 % GL Strain -14.1 % M-Mode Dimensions RVDd 2.78 cm (0.9-2.6) LVDd 4.13 cm (3.5-5.7) Ao Diam 3.48 cm (2.0-3.7) LVDs 2.70 cm (3.5-5.7) IVSd 1.39 cm (0.6-1.1) PWd 1.10 cm (0.6-1.1) EF (Teich) 64.20% FS 34.60% EDV (Teich) 75.50 mL ESV (Teich) 27.00 mL Other Information Study Quality: Technically Difficult Conclusion This is a limited TTE to evaluate for LVEF. Limited windows were obtained. Technically difficult study. The left ventricle is normal in size. There is increased LV wall thickness. There is normal global LV systolic function. No regional wall motion abnormalities are noted. LVEF is 65%. No pericardial effusions are noted. Compared to prior study from 09/16/2023, the LVEF overall appears unchanged. Electronically signed by : Diane Gay MD 11/10/2023 11:45:40
[2023-11-10 11:15] LABS: Basophils % 0.4 % (0.1-2.0); Eosinophils # 0.2 K/mm3 (0.0-0.4); Eosinophils % 3.6 % (0.1-12.0); Hematocrit 30.8 % (37.0-47.0); Hemoglobin 9.7 g/dL (12.2-16.2); Lymphocytes # 1.1 K/mm3 (0.7-4.5); Lymphocytes % 16.6 % (10-50); Mean Corpuscular HGB Conc 31.4 g/dL (31.8-35.4); Mean Corpuscular Hemoglobin 28.6 pg (27.0-31.2); Mean Corpuscular Volume 91.2 fl (81-99); Mean Platelet Volume 8.9 fl (7.4-10.4); Monocytes # 0.5 K/mm3 (0.1-1.0); Monocytes % 7.6 % (1.7-9.3); Neutrophils # 4.6 K/mm3 (1.8-7.8); Neutrophils % 71.9 % (37.0-80.0); Platelet Count 464 K/mm3 (142-424); Red Blood Count 3.38 M/mm3 (4.20-5.40); Red Cell Distribution Width 15.7 % (11.5-17.5); White Blood Count 6.4 K/mm3 (4.8-10.8)
[2023-11-10 11:29] LABS: Anion Gap 10.5 mEq/L (5-15); Blood Urea Nitrogen 14 mg/dl (7-17); Calcium 8.4 mg/dl (8.4-10.2); Carbon Dioxide 25 mmol/L (22.0-30.0); Chloride 98 mmol/L (98-107); Estimated Glomerular Filt Rate 60 ml/min (>60); GFR (African American) 73 ML/MIN (>60); Glucose 104 mg/dl (74-100); Magnesium 1.6 mg/dl (1.6-2.3); Potassium 3.5 mmoL/L (3.5-5.1); Sodium 130 mmol/L (136-145)
[2023-11-10 11:45] LABS: Free T4 (Free Thyroxine) 1.77 ng/dl (0.78-2.19)
[2023-11-10 11:59] LABS: Thyroid Stimulating Hormone 4.49 uIU/mL (0.465-4.68)
== END 2023-11-10 23:59 | disposition home or self-care (01) ==
LOC: RT 10:24
PROVIDERS: PCP Internal Medicine; Visit Provider Nurse Practitioner
DX: I25.10 Atherosclerotic heart disease of native coronary artery without angina pectoris (principal); I50.30 Unspecified diastolic (congestive) heart failure; R53.83 Other fatigue; R53.1 Weakness; R06.09 Other forms of dyspnea
CPT/HCPCS: 36415; 80048; 83735; 84439; 84443; 85025; 93308

== ENCOUNTER 2023-11-14 10:43 | Observation (INO) | payer MEDICARE, SELFPAY ==
[2023-11-14] VITALS (7 sets, daily range): BP systolic 98–131; BP diastolic 51–59; PULSE 65–78; RESP 18–20; TEMP 36.4–36.7; O2SAT 94–99; BMI 27.7
[2023-11-14 09:07] LABS: Basophils # 0.1 K/mm3 (0-0.2); Basophils % 0.4 % (0.1-2.0); Eosinophils # 0.3 K/mm3 (0.0-0.4); Eosinophils % 3.2 % (0.1-12.0); Hemoglobin 9.1 g/dL (12.2-16.2); Lymphocytes # 1.6 K/mm3 (0.7-4.5); Lymphocytes % 15.5 % (10-50); Mean Corpuscular HGB Conc 31.3 g/dL (31.8-35.4); Mean Corpuscular Hemoglobin 28.3 pg (27.0-31.2); Mean Corpuscular Volume 90.3 fl (81-99); Mean Platelet Volume 8.8 fl (7.4-10.4); Monocytes # 0.8 K/mm3 (0.1-1.0); Monocytes % 7.4 % (1.7-9.3); Neutrophils # 7.7 K/mm3 (1.8-7.8); Neutrophils % 73.4 % (37.0-80.0); Platelet Count 437 K/mm3 (142-424); Red Blood Count 3.21 M/mm3 (4.20-5.40); Red Cell Distribution Width 16.2 % (11.5-17.5); White Blood Count 10.6 K/mm3 (4.8-10.8)
[2023-11-14 10:05] LABS: Chloride 97 mmol/L (98-107); Sodium 130 mmol/L (136-145)
[2023-11-14 10:06] LABS: Potassium 3.2 mmoL/L (3.5-5.1)
[2023-11-14 10:08] LABS: Blood Urea Nitrogen 19 mg/dl (7-17); Estimated Glomerular Filt Rate 60 ml/min (>60); GFR (African American) 73 ML/MIN (>60)
[2023-11-14 10:09] LABS: Anion Gap 10.2 mEq/L (5-15); Calcium 7.8 mg/dl (8.4-10.2); Carbon Dioxide 26 mmol/L (22.0-30.0); Glucose 87 mg/dl (74-100)
--- NOTE | 2023-11-14 10:54 | PC.NURSE ---
arrived by w/c from ED admissions
[2023-11-14] MEDS: PANTOPRAZOLE SODIUM 80 MG in 0.9 % SODIUM CHLORIDE 100 ML 100 MG IV (11:50)
--- NOTE | 2023-11-14 13:27 | HMH.OTEV ---
OT Inpatient Evaluation Rehab OT IP Evaluation Start: 11/14/23 10:49 Freq: ONCE Status: Active Protocol: Document 11/14/23 13:20 [facility] (Rec: 11/14/23 13:27 [facility] [id number]) Rehab OT IP Assessment Subjective History Pt oriented x 3 on arrival. Pt agreeable to engage in therapy evaluation. Pt admitted for possible GI bleed on 11/14/23. History and physical report: 78-year-old white female established patient of this office with history of CAD status post stenting 09/2023. She and reports since that time she has had progressive weakness and GI disturbance. She was seen here on Tuesday with systolic blood pressure 80 and very poor p.o. intake. Her meds were adjusted and we repeated labs and limited echo. The echo shows normal EF. Her hemoglobin is down from 12 to 9 in 1 month. Patient reports she eats hardly anything for 2 weeks and has loose stools which she states are not dark black or orally. She does admit to bloating. Denies prior GI illness. Today she returns in a wheelchair due to weakness. Her states he is no longer able to help pick her up and ambulate her. They have an appointment with PCP on Tuesday but do not feel they can wait until then to get her some help. They are agreeable to admission with possible rehab stay. Subjective I have been feeling weak for the past month ago. Prior to being in the hospital , pt lived with her . Pt claims normally she is independent with ADLs such as dressing, bathing, and feeding . Pt has been dependent upon for completion of all IADLs. Pt does use a rolling walker during functional transfers. Objective Patient Orientation Person,Place,Birthday Right Upper Extremity Gross ROM WFL Left Upper Extremity Gross ROM WFL Bed Mobility bed mobility-scooting,bed mobility - supine/sit Assist Level Contact Guard/Hand Hold Transfer Training Sit/Stand Transfer Assist Level Contact Guard/Hand Hold Rehab OT IP prob,goals,plan Problems Date of Evaluation: 11/14/23 OT IP Problems Bed Mobility,Transfers,Balance ,Self care,Safety Rehab Potential Rehab Potential Good Equipment Needs Assistive Devices Rolling / Wheeled Walker Plan OT intervention Plan Bed Mobility,Transfers,Balance ,Self care,Safety,Therapeutic Exercise OT Plan Frequency Daily Duration LOS Discharge Goals Bed Mobility Ability Standby Assistance Sit to Stand Chair Transfer Ability Supervision/Stand by Chair Transfer Ability Supervision/Stand by Chair Transfer Technique Sit to/from Ambulatory Chair Transfer Assistive Devices Rolling Walker Feeding Ability Assist with Tray Set Up Lower Body Dressing Ability Minimal Assistance Upper Body Dressing Ability Standby Assistance Bathing Ability Contact Guard Performing Toilet Hygiene Ability Standby Assistance Overall Commode/Toilet Transfer Ability Standby Assistance Commode/Toilet Transfer Technique Sit to/from Ambulatory Commode/Toilet Transfer Assistive Grab Bars Devices Oral Care Assist Standby Assistance Decrease in Endurance Yes Discharge Plan OT Discharge Plan Pt will continue to be seen for OT services while at [facility]. Pt appears to be close to her baseline with functional transfers and ADL independence . Pt can return home with once she is medically stable per physician. Therapist recommends OT evaluation upon returning home for continued skilled therapy . Continued skilled therapy is important in order for patient to improve strength, safety, endurance, ADL independence, and functional transfers to reach PLOF. Eval Complexity Eval Charge Codes 09157 - Moderate Complexity PHYSICIAN CERTIFICATION: I certify the specified therapy services for Anahy Rivera are required, authorized, and reviewed every 30 days.
--- NOTE | 2023-11-14 13:30 | HMH.PTEV ---
Physical Therapy Evaluation Rehab PT IP Evaluation Start: 11/14/23 10:49 Freq: ONCE Status: Active Protocol: Document 11/14/23 13:23 NEHEMIAS (Rec: 11/14/23 13:30 NEHEMIAS [email or web address]) Subjective/History History History 78-year-old white female with history of CAD status post stenting 09/2023. Per office visit 11/13: She and reports since that time she has had progressive weakness and GI disturbance. Subjective Subjective Pt reports she lives with her in a single story home with 1 BARBAR[address]. Pt used a RW for IND ambulation. Reports one fall on October 16 from weakness and LOB. New diagnosis of cancer in past 12 No months? Rehab PT IP Eval Objective Appearance Patient Behavior Appropriate,Cooperative Patient Orientation Person,Birthday,Situation Difficulty following instructions none Speech Pattern Clear Ambulation Patient Able to Ambulate Yes Ambulation Observation IP General Gait Pattern Observation Wide Based Gait Ambulation Distance (feet) 15 Ambulation Assistive Device Rolling Walker Ambulation Ability Contact Guard/Hand Hold Balance Ability to Arise Able, uses arms to help Sitting Balance Steady, safe Standing Balance Steady, wide stance Transfers Bed Transfer Ability Minimal x 1 (25% assist) Sit to Stand Bed Transfer Ability Contact Guard/Hand Hold Rehab PT IP prob,goals,plan Problems Date of Evaluation: 11/14/23 PT IP Problems Bed Mobility,Transfers,Gait, Balance,Safety Rehab Potential Rehab Potential Good Equipment Needs Assistive Devices Rolling / Wheeled Walker Plan PT Intervention Plan Bed Mobility,Transfers,Gait, Balance,Safety,Therapeutic Exercise Other Intervention Plan 1-2 PT Plan Frequency Daily Duration LOS Discharge Goals Bed Transfer Ability Supervision/Stand by Sit to Stand Chair Transfer Ability Supervision/Stand by Ambulation Assistive Device Rolling Walker Ambulation Distance (feet) 20 Discharge Plan PT Discharge Plan Initial physical therapy evaluation performed. Patient presents below baseline at this time in functional mobility, transfers, gait, and strength. Pt would benefit from skilled PT while at [facility] to prevent further functional decline and maximize safety with mobility. Pt safe to d/c home when deemed medically necessary d/t current level of mobility, home set-up, and family support. PT recommending home health PT services to address deficits. Eval Complexity Eval Charge Codes 50553 - Moderate Complexity PHYSICIAN CERTIFICATION: I certify the specified therapy services for Anahy Rivera are required, authorized, and reviewed every 30 days.
--- NOTE | 2023-11-14 14:37 | CT_ITS ---
FINAL REPORT TECHNIQUE: Axial imaging of the chest was obtained without contrast. Reformatted images were also obtained and reviewed.This study was performed with techniques to keep radiation doses as low as reasonably achievable, (ALARA). Individualized dose reduction technique using automated exposure control or adjustment of mA and/or kV according to the patient's size were employed. CLINICAL HISTORY: dyspnea FINDINGS: There is no axillary adenopathy. There is no hilar or mediastinal mass or adenopathy. Heart size is normal. There is no pericardial or pleural effusion. There is bilateral, right greater than left lower lobe atelectasis. Lungs are otherwise clear. No suspicious infiltrate or nodule is identified on lung window images. No acute osseous abnormality is seen. IMPRESSION: No acute process. Reviewed, Interpreted and Dictated by Addie Holly MD Transcribed by Aura White Authenticated and [facility]
--- NOTE | 2023-11-14 14:50 | CT_ITS ---
FINAL REPORT TECHNIQUE: Axial images through the abdomen and pelvis were performed without contrast.This study was performed with techniques to keep radiation doses as low as reasonably achievable, (ALARA). Individualized dose reduction techniques using automated exposure control or adjustment of mA and/or kV according to the patient's size were employed. CLINICAL HISTORY: distension, abd pain FINDINGS: ABDOMEN: The heart size is normal. The liver is enlarged with multiple hepatic masses present. There is a large, heterogeneous mass in the inferior left hepatic lobe measuring at least 10 cm. Evaluation is limited without contrast. Along the inferior aspect of the left hepatic lobe, between the liver and stomach, is what may be a capsular hematoma or complex fluid collection measuring 10 cm. This is best seen on axial images 47 through 64. Gallbladder is present. Pancreatic head is grossly unremarkable. Tail is difficult to separate from the left hepatic lobe mass. The spleen is normal. No adrenal mass is identified. The aorta is normal in caliber. There is no nephrolithiasis. There is no hydronephrosis. There is no evidence of small bowel obstruction. PELVIS: The appendix is normal. There is diverticulosis without evidence of diverticulitis. Uterus is absent. The urinary bladder is unremarkable. There is a small amount of perihepatic and pelvic ascites. No acute osseous abnormality is seen. IMPRESSION: Enlarged liver with multiple hepatic masses, favor disease. Although, multifocal hepatocellular carcinoma cannot be excluded. Recommend liver mass protocol CT for further evaluation. Collection between the liver and stomach which could be hematoma, pseudocyst or other complex fluid collection. Pancreas not well-visualized. This can be better evaluated with contrast-enhanced CT. Ascites. Reviewed, Interpreted and Dictated by Addie Holly MD Transcribed by Aura White Authenticated and . [facility]
--- NOTE | 2023-11-14 14:58 | P.HP_ITS ---
History of Present Illness *Admission Date: 11/14/23 *Reason for visit:: weakness, dyspnea, bloating *History of present illness: Ms. Mcdonald is an 78-year-old female who has a history of diastolic dysfunction, CAD, who presented approximately 4 weeks ago on 10/02 for elective heart cath. Had severe two-vessel disease identified at that time with successful stenting of the proximal LAD and proximal mid large first obtuse marginal. Since her heart cath she states she has been feeling more short of breath and fatigued. Barely has energy to get around the house. Denies any chest pain, nausea, vomiting, diarrhea. States she has had some upset stomach for which she has taken Pepto-Bismol the past week which is caused her to have some darker stools. On further questioning, she reports she has been having some abdominal distention and early satiety over the past 2+ months. Also noted to have weight loss over the past 4 months of a little over 10 pounds. States she is more short of breath when she is up moving around. Feels better when she lays flat. Denies any cough, headache, confusion. Of note she fell a week ago bruising her left leg and spraining her ankle but it is healing and she is feeling better. Was brought to cardiology clinic today for elective/routine follow-up. Due to concern for worsening decline, debility, fatigue, cardiology requested admission for further workup and management. presented with her on admission. Son and daughter at bedside later in the afternoon. Reports history of hepatitis B as a child, underwent treatment around the age of 4. Labs drawn prior to admission by cardiology that show anemia with hemoglobin of 9, hemoglobin 12 prior to her heart cath. She additionally adds that she has a history of suspected multiple myeloma that was treated monitored by Dr. Anahy Kaplan in [place] for several years. Not under any care or treatment at this time. On room air, alert and oriented x 4. PFSH [facility] Disclaimer: The information contained in this section may have been updated after the patient was seen, as this information can be updated by other users. Medical History (Updated 11/14/23 @ 23:03 by Harsh Min MD) Hepatitis B Fatigue (HFpEF) heart failure with preserved ejection fraction Abnormal nuclear cardiac imaging test Dyspnea HLD (hyperlipidemia) Diastolic heart failure Social History Smoking Status: Never smoker alcohol intake: never substance use type: denies use current occupational status: retired Travel in the last 8 weeks: Inside the [place] Review of Systems Review of Systems Review of systems (narrative): 14 point review of systems performed, pertinent positives and negatives as per HPI Meds Home Medications and Allergies Home Medications ?Medication ?Instructions ?Recorded ?Confirmed ?Type ropinirole 0.25 mg tablet (Requip) 0.25 mg PO QID 10/31/17 11/14/23 History carbidopa 25 mg-levodopa 100 mg 2 tab PO QID 07/01/20 11/14/23 History tablet amitriptyline 10 mg tablet 10 mg PO TIDWMEAL 11/03/21 11/14/23 History clopidogrel 75 mg tablet (Plavix) 75 mg PO DAILY 30 days #30 tabs 10/03/23 11/14/23 Rx carvedilol 6.25 mg tablet (Coreg) 6.25 mg PO BID #60 tabs 11/10/23 11/14/23 Rx hydrochlorothiazide 12.5 mg capsule 12.5 mg PO DAILY #30 caps 11/10/23 11/14/23 Rx amitriptyline 10 mg tablet 50 mg PO HS 11/14/23 11/14/23 History aspirin 81 mg tablet,delayed 81 mg PO DAILY 11/14/23 11/14/23 History release furosemide 40 mg tablet 40 mg PO DAILY 11/14/23 11/14/23 History omeprazole 40 mg capsule,delayed 40 mg PO DAILY 11/14/23 11/14/23 History release New Prescriptions to Start Prescriptions: Allergies Allergy/AdvReac Type Severity Reaction Status Date / Time Cephalosporins Allergy Unknown Verified 11/14/23 09:12 clarithromycin [From Biaxin] Allergy Unknown Verified 11/14/23 09:12 Macrolide Antibiotics Allergy Unknown Verified 11/14/23 09:12 metaxalone [From Skelaxin] Allergy Unknown Verified 11/14/23 09:12 Penicillins Allergy Unknown Verified 11/14/23 09:12 Tetracyclines Allergy Unknown Verified 11/14/23 09:12 [id number] Reductase AdvReac Severe Verified 11/14/23 09:12 Inhibitor codeine AdvReac Mild NA-NAUSEA/V Verified 11/14/23 09:12 OMITING rosuvastatin AdvReac Fatigued Verified 11/14/23 09:12 Exam Data for Last 24 hours Vital signs and Labs for Last 24 Hours: Temp Pulse Resp BP Pulse Ox O2 Del Method 97.5 F L 70 20 98/51 L 99 Room Air 11/14/23 10:49 11/14/23 12:00 11/14/23 10:49 11/14/23 10:49 11/14/23 10:49 11/14/23 13:00 Laboratory Results - last 24 hr 11/14/23 08:44: WBC 10.6, RBC 3.21 L, Hgb 9.1 L, Hct 29.0 L, MCV 90.3, MCH 28.3, MCHC 31.3 L, RDW 16.2, Plt Count 437 H, MPV 8.8, Neut % (Auto) 73.4, Lymph % (Auto) 15.5, Rains % (Auto) 7.4, Eos % (Auto) 3.2, Baso % (Auto) 0.4, Neut # (Auto) 7.7, Lymph # (Auto) 1.6, Rains # (Auto) 0.8, Eos # (Auto) 0.3, Baso # (Auto) 0.1, Sodium 130 L, Potassium 3.2 L, Chloride 97 L, Carbon Dioxide 26, Anion Gap 10.2, BUN 19 H, Creatinine 0.90, Estimated GFR 60, Est GFR ( Amer) 73, Glucose 87, Calcium 7.8 L I & O for Last 24 hours: Intake & Output 11/11/23 11/12/23 11/13/23 11/14/23 23:59 23:59 23:59 23:59 Weight 64.41 kg Constitutional Constitutional: mild distress, average body habitus, chronically ill appearing and cooperative Comments: ill appearing *Routine HEENT Exam Head: Present normocephalic Eye: Present EOMI and PERRL ENT: Present mucous membranes moist *Routine Neck Exam Neck: Present supple; Absent lymphadenopathy *Routine Respiratory Exam Respiratory: Present CTA bilaterally; Absent rhonchi, wheezes or crackles *Routine Cardiovascular Exam Cardiovascular: Present RRR *Routine Abdominal Exam Abdominal: Present soft, normoactive bowel sounds, tenderness (mild in upper abdomen) and distended; Absent rebound or guarding *Routine Rectal Exam Rectal:: deferred *Routine Genitalia Exam Genitalia:: deferred *Routine Extremities Exam Extremities: Absent cyanosis, clubbing or edema *Routine Skin Exam Skin: Present intact and warm; Absent cyanosis or rash *Routine Neurological Exam Neurological: Present alert, oriented X3 and moving all extremities; Absent altered mental status Assessment and Plan *Assessment and plan (1) Anemia: Status: Acute Category: Medical Code(s): D64.9 - Anemia, unspecified (2) Unintended weight loss: Status: Acute Category: Medical Code(s): R63.4 - Abnormal weight loss (3) Early satiety: Status: Acute Category: Medical Code(s): R68.81 - Early satiety (4) Abdominal distension: Status: Acute Category: Medical Code(s): R14.0 - Abdominal distension (gaseous) (5) Hyponatremia: Status: Acute Category: Medical Code(s): E87.1 - Hypo-osmolality and hyponatremia (6) Weakness: Status: Acute Category: Medical Code(s): R53.1 - Weakness (7) Fatigue: Status: Acute Category: Medical Code(s): R53.83 - Other fatigue (8) (HFpEF) heart failure with preserved ejection fraction: Status: Acute Category: Medical Code(s): I50.30 - Unspecified diastolic (congestive) heart failure (9) Coronary artery disease: Status: Acute Category: Medical Code(s): I25.10 - Atherosclerotic heart disease of [place] coronary artery without angina pectoris Plan 78-year-old female with history of heart failure preserved ejection fraction, worsening fatigue over the past few months, unintentional weight loss, and recent heart cath with 2 stents placed approximately 1 month ago. Presented to cardiology clinic for follow-up. Concern for worsening fatigue and unclear weight loss. Discussed case with cardiology provider who requested admission for further workup of her dyspnea that he does not believe is secondary to her heart disease. I agreed to admit for further workup. Concerning report of shortness of breath relieved by laying flat, worse with exertion, Increased abdominal distention and early satiety, unintentional weight loss. Will initiate workup with lab work and imaging selectively. Problems addressed as follows: Unintentional weight loss Dyspnea with exertion Abdominal distention and early satiety -Will obtain CT chest abdomen pelvis to evaluate for differential etiologies. Differential diagnosis includes pulmonary edema, cirrhosis, cancer, anemia, GI bleed in the setting of anemia and weakness and dark stools. -Hemoglobin 9 point stable over the past few days but down from prior to heart cath by 3 points. Repeat CBC, CMP, magnesium ordered for the morning., - White count normal at 10.6 - Platelets normal at 437. PT/INR pending -Sodium low at 130, potassium 3.2, chloride 97. Kidney function normal with BUN 19, creatinine 0.9. Calcium 7.8 -BNP 732. Ammonia less than 9 -Per my review, initial CT of abdomen shows heterogenous densities in the liver, enlarged liver that spans across the entire upper abdomen. Will obtain CT abdomen with contrast for better evaluation. Also appears to have some ascites. -Hepatitis panel pending -CEA pending CAD with recent stenting Heart failure with preserved ejection fraction -Will continue aspirin and Plavix in the setting of stents 1 month old -Cardiology consulted to assist with management - Continue carvedilol 6.25 mg twice daily, continue Lasix 40 mg daily, continue HCTZ 12.5 mg daily. Anemia: Concern for blood loss. Will consider surgery eval pending CT chest abdomen pelvis -Platelets normal at 437. Coags pending. - Anemia of unknown source, symptoms of early satiety give concern for gastritis or possible GI source. Will administer 80 mg IV Protonix once followed by 40 mg IV twice daily -Stool occult blood pending Lower extremity peripheral neuropathy: Continue carbidopa levodopa 2 tablets 4 times a day and ropinirole 0.25 mg 4 times a day per home regimen. She has been on this for years from her neurologist. Neurosurgeon. Full code Holding anticoagulation in setting of anemia of unknown origin Regular diet
[2023-11-14 15:01] LABS: NT Pro Brain Natriuretic Pep. 732 pg/mL (0-450)
--- NOTE | 2023-11-14 15:26 | US_ITS ---
FINAL REPORT CLINICAL HISTORY: eval liver for cirrhosis, cancer? COMPARISON: Ultrasound from 2017 FINDINGS: There are multiple liver masses. Portal vein is patent. Gallbladder contains sludge without stones. Common duct is normal at 3 mm. Right kidney measures 10.5 cm and is otherwise unremarkable. There is a small amount of ascites. IMPRESSION: Multiple hepatic masses very concerning for metastasis. Recommend CT liver mass protocol. Reviewed, Interpreted and Dictated by Addie Holly MD Transcribed by Aura White Authenticated and . [facility]
--- NOTE | 2023-11-14 16:50 | PC.NURSE ---
pt has been resting in bed majority of shift. pt has had no complaints. has been at bedside today. pt remains on room air and is a&ox4. no new orders at this time.
--- NOTE | 2023-11-14 17:01 | CT_ITS ---
PROCEDURE INFORMATION: Exam: CT Abdomen With Contrast, Liver Exam date and time: 11/14/2023 5:37 PM Age: 78 years old Clinical indication: Abnormal findings; Abnormal radiologic finding of the abdomen; Radiologic exam and body structure: CT abd/pelv wo; Additional info: Multiple lesions in liver TECHNIQUE: Imaging protocol: Computed tomography images of the abdomen with intravenous contrast. Radiation optimization: All CT scans at this facility use at least one of these dose optimization techniques: automated exposure control; mA and/or kV adjustment per patient size (includes targeted exams where dose is matched to clinical indication); or iterative reconstruction. Contrast material: ISOVUE; Contrast volume: 75 ml; Contrast route: IV; COMPARISON: CT ABDOMEN PELVIS WO CON 11/14/2023 3:06 PM FINDINGS: Lungs: Bibasilar atelectasis noted in the lungs. Small right middle lobe calcified granuloma. Liver: The liver is enlarged with numerous liver masses of varying sizes throughout both lobes. This includes innumerable small flash filling lesions as well as large heterogeneously enhancing lesions, the largest measuring approximately 12 cm in the left lobe. There is also a subcapsular mixed density fluid collection posterior to the left lobe liver with the appearance suspicious for organized subcapsular hematoma measuring approximately 10 cm greatest diameter. Overall findings are highly concerning for metastatic malignancy. The largest lesions exhibit central nonenhancing areas and the possibility of multiple areas of focal nodular hyperplasia and/or giant hemangiomas cannot be excluded. Gallbladder and biliary ducts: Normal. No calcified stones. No ductal dilation. Pancreas: Normal. No ductal dilation. Spleen: Normal. No splenomegaly. Adrenal glands: Normal. No mass. Kidneys and ureters: Normal. No hydronephrosis. Stomach and bowel: Normal. No obstruction. No mucosal thickening. Intraperitoneal space: Small amount of free fluid scattered throughout the abdomen and pelvis. No free air. Lymph nodes: Unremarkable. No enlarged lymph nodes. Vasculature: Dense atherosclerotic calcification and mural thrombus throughout the abdominal aorta. No evidence of aneurysm or dissection. Bones/joints: Significant levoscoliosis of the thoracolumbar spine with moderate to severe multilevel degenerative disc changes throughout the lower spine. Multilevel facet arthropathy also noted. Grade 1 anterolisthesis of L4. No vertebral body compression or acute fracture. Soft tissues: Mild diffuse subcutaneous soft tissue edema IMPRESSION: 1. Markedly abnormal appearance of the liver as described most concerning for diffuse metastatic malignancy. Core biopsy of the most accessible portion of the liver would be recommended if clinically feasible. 2. Mixed density appearance subcapsular fluid collection posterior to the left lobe of the liver measuring approximately 10 cm raises concern for organized hematoma, possibly representing bleeding from underlying large left lobe liver lesion. 3. Significant chronic osseous and atherosclerotic changes as described.
[2023-11-14] MEDS: CARBIDOPA/LEVODOPA 25/100MG TABLET 2 EACH PO (18:01)
[2023-11-14] MEDS: SODIUM CHLORIDE 0.9% 10ML SYR (RAD ONLY) 10 ML IV (18:03)
[2023-11-14] MEDS: IOPAMIDOL-370 (76%);100ML BOTTLE 75 ML IV (18:06)
[2023-11-14] MEDS: ROPINIROLE HCL 0.25 MG TABLET PO ×2 (18:11→21:08)
[2023-11-14] MEDS: SODIUM CHLORIDE 0.9% 10ML VIAL 10 ML IV (21:04)
[2023-11-14] MEDS: CARVEDILOL 6.25MG TABLET 6.25 MG PO (21:04)
[2023-11-14] MEDS: PANTOPRAZOLE 40MG VIAL 40 MG IV (21:05)
[2023-11-14] MEDS: AMITRIPTYLINE 10MG TABLET 50 MG PO (21:07)
--- NOTE | 2023-11-14 21:32 | PC.NURSE ---
Patient started complaining of right abdominal pain at around 21:25, stating that it started about 15 minutes ago. Patient reported tenderness with and without palpation, and rated her pain as a level 8. Patient was newly diagnosed in the previous shift with liver masses shown by CT scan. Dieter ZEPEDA was paged at 21:30 to seek interventions for her pain.
[2023-11-14 22:39] LABS: INR 1.32 (0.9-1.1); Prothrombin Time 14.4 seconds (10.1-12.5)
[2023-11-14 22:44] LABS: Ammonia < 9 umol/L (9-30)
[2023-11-15] VITALS (11 sets, daily range): BP systolic 115–140; BP diastolic 41–70; PULSE 68–75; RESP 16–20; TEMP 36.5–36.8; O2SAT 90–98; BMI 28.9
--- NOTE | 2023-11-15 06:35 | PC.NURSE ---
Patient is alert and oriented x4. Patient has rested throughout the night. She did not complain of any further right upper quadrant pain in her abdomen. Her bowel sounds were hypoactive in all quadrants and her lungs were clear upon auscultation. She has tolerated room air throughout the shift. Patient is normal sinus rhythm on telemetry. Patient reported that she has not had a bowel movement since 1 week ago. A stool sample order for occult blood is still in standing; was not able to be collected this shift. Patient has received her scheduled meds per JUN this shift. However, patient was not given carbidopa/levidopa this shift due to unavailability in the [facility]. Restlessness in patient's legs were noticed periodically this shift. Patient does not have any further complaints at this time. She is currently resting supine in bed. Call light within reach.
[2023-11-15 07:05] LABS: Basophils % 0.5 % (0.1-2.0); Eosinophils # 0.2 K/mm3 (0.0-0.4); Eosinophils % 2.8 % (0.1-12.0); Hematocrit 26.1 % (37.0-47.0); Hemoglobin 8.3 g/dL (12.2-16.2); Lymphocytes # 1.5 K/mm3 (0.7-4.5); Lymphocytes % 19.3 % (10-50); Mean Corpuscular HGB Conc 31.9 g/dL (31.8-35.4); Mean Corpuscular Hemoglobin 28.3 pg (27.0-31.2); Mean Corpuscular Volume 88.9 fl (81-99); Mean Platelet Volume 8.7 fl (7.4-10.4); Monocytes # 0.7 K/mm3 (0.1-1.0); Monocytes % 8.8 % (1.7-9.3); Neutrophils # 5.2 K/mm3 (1.8-7.8); Neutrophils % 68.6 % (37.0-80.0); Platelet Count 371 K/mm3 (142-424); Red Blood Count 2.94 M/mm3 (4.20-5.40); Red Cell Distribution Width 16.4 % (11.5-17.5); White Blood Count 7.6 K/mm3 (4.8-10.8)
[2023-11-15 07:06] LABS: Alanine Aminotransferase 10 U/L (12-78); Albumin Level 2.6 g/dl (3.5-5.0); Alkaline Phosphatase 300 U/L (38-126); Anion Gap 10.9 mEq/L (5-15); Aspartate Amino Transferase 68 U/L (14-36); Bilirubin,Total 1.7 mg/dl (0.2-1.3); Blood Urea Nitrogen 19 mg/dl (7-17); Calcium 7.9 mg/dl (8.4-10.2); Carbon Dioxide 25 mmol/L (22.0-30.0); Chloride 97 mmol/L (98-107); Creatinine Clearance Estimated 47 mL/min (50-200); Estimated Glomerular Filt Rate 69 ml/min (>60); GFR (African American) 84 ML/MIN (>60); Globulin 2.7 g/dL (1.3-3.2); Glucose 76 mg/dl (74-100); Magnesium 1.5 mg/dl (1.6-2.3); Sodium 130 mmol/L (136-145); Total Protein,Serum 5.3 g/dl (6.3-8.2)
[2023-11-15 07:31] LABS: Potassium 2.9 mmoL/L (3.5-5.1)
[2023-11-15] MEDS: KCl 20mEq/100ml 100 ML 50 MEQ IV ×2 (07:54→09:54)
[2023-11-15] MEDS: MAGNESIUM SULFATE IN WATER 2 GM/50 ML PIGGYBACK IV (08:23)
[2023-11-15] MEDS: CARBIDOPA/LEVODOPA 25/100MG TABLET 2 EACH PO ×3 (08:41→20:13)
[2023-11-15] MEDS: FUROSEMIDE 40 MG TABLET PO (08:42)
[2023-11-15] MEDS: ROPINIROLE HCL 0.25 MG TABLET PO ×3 (08:45→20:13)
[2023-11-15] MEDS: POTASSIUM CHLORIDE 20MEQ TAB 20 MEQ PO ×3 (08:46→20:13)
--- NOTE | 2023-11-15 10:15 | P.CONCA_ITS ---
History of Present Illness History of Present Illness Consult date: 11/08/23 Requesting physician: Harsh Min Chief complaint: failure to thrive, weakness, bloating History of present illness: This is an 78-year-old white female with past medical history of coronary artery disease with recent DANIAL to LAD and proximal-mid large first obtuse marginal 09/2023, hyperlipidemia, hypertension and a history of heart failure with preserved ejection fraction who was admitted to the hospital yesterday from the cardiology clinic with complaints of generalized weakness, lack of appetite, dyspnea and abdominal bloating. Patient underwent left heart catheterization on 10/03/2023 for abnormal stress test. Patient reports a decline since procedure. Patient states has no energy, feels short of breath all the time and is having abdominal bloating and early satiety. reports patient has not been eating or drinking and is losing weight. Patient was admitted for further evaluation for failure to thrive. Labs on admission: WBC 10.6, hemoglobin 9.1, sodium 130, potassium 3.2, BUN 19 and creatinine 0[address]9. A CT abdomen pelvis was obtained which shows an enlarged liver with multiple hepatic lesions favoring metastatic malignancy along with a fluid collection between the liver and stomach which could be hematoma, pseudocyst or other complex fluid collection. Cardiology was asked to consult to assist with goals of care and management of DAPT therapy. [facility] Disclaimer: The information contained in this section may have been updated after the patient was seen, as this information can be updated by other users. Medical History (Updated 11/15/23 @ 10:31 by Irene Greco APRN) Hepatitis B Fatigue (HFpEF) heart failure with preserved ejection fraction Abnormal nuclear cardiac imaging test Dyspnea HLD (hyperlipidemia) Diastolic heart failure Social History Smoking Status: Never smoker alcohol intake: never substance use type: denies use current occupational status: retired Travel in the last 8 weeks: Inside the [place] Review of Systems Review of Systems Review of systems:: pertinent systems reviewed and negative unless documented below Constitutional Constitutional: Reports poor appetite, Reports weakness and Reports weight loss *Cardiovascular Cardiovascular: Denies chest pain and Reports dyspnea *Respiratory Respiratory: Reports dyspnea *Neurologic Neurologic: Reports weakness Exam Data for Last 24 hours Vital signs and Labs for Last 24 Hours: Temp Pulse Resp BP Pulse Ox O2 Del Method 97.8 F 75 16 115/41 L 94 L Room Air 11/15/23 07:43 11/15/23 08:00 11/15/23 07:43 11/15/23 07:43 11/15/23 07:43 11/15/23 07:43 Laboratory Results - last 24 hr 11/14/23 08:44: Sodium 130 L, Potassium 3.2 L, Chloride 97 L, Carbon Dioxide 26, Anion Gap 10.2, BUN 19 H, Creatinine 0.90, Estimated GFR 60, Est GFR ( Amer) 73, Glucose 87, Calcium 7.8 L 11/14/23 08:48: NT-Pro-B Natriuret Pep 732 H 11/14/23 22:16: PT 14.4 H, INR 1.32 H, Ammonia < 9 L 11/15/23 06:14: WBC 7.6 D, RBC 2.94 L, Hgb 8.3 L, Hct 26.1 L, MCV 88.9, MCH 28.3, MCHC 31.9, RDW 16.4, Plt Count 371, MPV 8.7, Neut % (Auto) 68.6, Lymph % (Auto) 19.3, [place] % (Auto) 8.8, Eos % (Auto) 2.8, Baso % (Auto) 0.5, Neut # (Auto) 5.2, Lymph # (Auto) 1.5, [place] # (Auto) 0.7, Eos # (Auto) 0.2, Baso # (Auto) 0.0, Sodium 130 L, Potassium 2.9 L*, Chloride 97 L, Carbon Dioxide 25, Anion Gap 10.9, BUN 19 H, Creatinine 0.80, Estimated Creat Clear 47, Estimated GFR 69, Est GFR ( Amer) 84, Glucose 76, Calcium 7.9 L, Magnesium 1.5 L, Total Bilirubin 1.7 H, AST 68 H, ALT 10 L, Alkaline Phosphatase 300 H, Total Protein 5.3 L, Albumin 2.6 L, Globulin 2.7, Albumin/Globulin Ratio 1.0 L I & O for Last 24 hours: Intake & Output 11/12/23 11/13/23 11/14/23 11/15/23 23:59 23:59 23:59 23:59 Intake Total 100 / 220 240 / 240 Output Total 0 / 0 Balance 100 / 220 240 / 240 Weight 142 lb 147 lb 8 oz Constitutional Constitutional: no acute distress *Routine Respiratory Exam Respiratory: Present CTA bilaterally and symmetric chest movement *Routine Cardiovascular Exam Cardiovascular: Present RRR, Normal S1 and Normal S2 *Routine Abdominal Exam Abdominal: Present distended *Routine Extremities Exam Extremities: Present full ROM and normal capillary refill; Absent edema *Routine Skin Exam Skin: Present intact, dry and warm Detailed Neck Exam: Thyroids Thyroid: Absent bruit Meds Home Medications and Allergies Home Medications ?Medication ?Instructions ?Recorded ?Confirmed ?Type ropinirole 0.25 mg tablet (Requip) 0.25 mg PO QID 10/31/17 11/14/23 History carbidopa 25 mg-levodopa 100 mg 2 tab PO QID 07/01/20 11/14/23 History tablet amitriptyline 10 mg tablet 10 mg PO TIDWMEAL 11/03/21 11/14/23 History clopidogrel 75 mg tablet (Plavix) 75 mg PO DAILY 30 days #30 tabs 10/03/23 11/14/23 Rx carvedilol 6.25 mg tablet (Coreg) 6.25 mg PO BID #60 tabs 11/10/23 11/14/23 Rx hydrochlorothiazide 12.5 mg capsule 12.5 mg PO DAILY #30 caps 11/10/23 11/14/23 Rx amitriptyline 10 mg tablet 50 mg PO HS 11/14/23 11/14/23 History aspirin 81 mg tablet,delayed 81 mg PO DAILY 11/14/23 11/14/23 History release furosemide 40 mg tablet 40 mg PO DAILY 11/14/23 11/14/23 History omeprazole 40 mg capsule,delayed 40 mg PO DAILY 11/14/23 11/14/23 History release New Prescriptions to Start Prescriptions: Allergies Allergy/AdvReac Type Severity Reaction Status Date / Time Cephalosporins Allergy Unknown Verified 11/14/23 09:12 clarithromycin [From Biaxin] Allergy Unknown Verified 11/14/23 09:12 Macrolide Antibiotics Allergy Unknown Verified 11/14/23 09:12 metaxalone [From Skelaxin] Allergy Unknown Verified 11/14/23 09:12 Penicillins Allergy Unknown Verified 11/14/23 09:12 Tetracyclines Allergy Unknown Verified 11/14/23 09:12 [id number] Reductase AdvReac Severe Verified 11/14/23 09:12 Inhibitor codeine AdvReac Mild NA-NAUSEA/V Verified 11/14/23 09:12 OMITING rosuvastatin AdvReac Fatigued Verified 11/14/23 09:12 Assessment and Plan *Assessment and plan (1) Coronary artery disease: Status: Acute Category: Medical Code(s): I25.10 - Atherosclerotic heart disease of [place] coronary artery without angina pectoris (2) (HFpEF) heart failure with preserved ejection fraction: Status: Acute Category: Medical Code(s): I50.30 - Unspecified diastolic (congestive) heart failure (3) Fatigue: Status: Acute Category: Medical Code(s): R53.83 - Other fatigue (4) Weakness: Status: Acute Category: Medical Code(s): R53.1 - Weakness (5) Anemia: Status: Acute Category: Medical Code(s): D64.9 - Anemia, unspecified (6) Liver mass: Status: Acute Category: Medical Code(s): R16.0 - Hepatomegaly, not elsewhere classified (7) Abdominal distension: Status: Acute Category: Medical Code(s): R14.0 - Abdominal distension (gaseous) (8) Unintended weight loss: Status: Acute Category: Medical Code(s): R63.4 - Abnormal weight loss (9) Early satiety: Status: Acute Category: Medical Code(s): R68.81 - Early satiety Plan Liver lesions concerning for metastatic disease Generalized weakness Abdominal distention Unintentional weight loss CT abdomen pelvis 11/14/2023: Enlarged liver with multiple hepatic lesions favoring metastatic disease and a collection between the liver and stomach which could be a hematoma, pseudocyst or other complex fluid collection. CT abdomen with contrast 11/14/2023: Markedly abnormal appearance of the liver concerning for metastatic malignancies, largest lesion measures 12cm and a 10cm fluid collection posterior to the left lobe of the liver raises concern for an organized hematoma, possibly representing bleeding from underlying large left lobe liver lesion. CT chest- negative for acute process Defer to primary service Anemia Drop in hemoglobin from 12-8.3 in less than a month status post stenting and starting DAPT therapy Fluid collection noted on CT abdomen- possible hematoma Hold Dapt therapy Hypokalemia Hypomagnesemia Potassium this morning 2.9, primary service is replacing Mag 1.5- primary service replacing CAD Recent stenting to LAD and large first obtuse marginal-10/02 Continue carvedilol 6.25 mg po BID. Statin intolerant Dapt on hold due to anemia and possible abdominal hematoma Chronic HFpEF Echo 08/2023: Normal biventricular function, biatrial dilation, mild AI, mild MR Continue Lasix 40mg po daily and hctz 12.5mg po daily. Consider adding Jardiance later CV summary 11/15/2023: Hold Dapt therapy due to anemia and possible liver hematoma/bleeding liver lesion. Cardiology will follow along. Cardiac meds Carvedilol 6.25 mg p.o. twice daily Lasix 40 mg p.o. daily Hydrochlorothiazide 12.5 mg p.o. daily
[2023-11-15] MEDS: POTASSIUM CHLORIDE 20 MEQ, LIDOCAINE HCL/PF 3 ML in 0.9 % SODIUM CHLORIDE 100 ML 56.5 MEQ IV (10:28)
[2023-11-15] MEDS: PANTOPRAZOLE 40MG VIAL 40 MG IV ×2 (10:40→20:13)
--- NOTE | 2023-11-15 11:07 | EXP.ACUTE.PN ---
Subjective *Date: 11/15/23 *Time: 15:36 Interval history: Denies any nausea or vomiting. Reports she has not had a bowel movement almost a week. Denies any chest pain or shortness of breath. Stable on room air. Family at bedside. Medical Exam Vital signs and Labs for Last 24 Hours: Vital Signs Temp Pulse Pulse Resp BP Pulse Ox O2 Del Method 11/15/23 08:00 Room Air 11/15/23 08:00 75 11/15/23 07:43 97.8 F 75 16 115/41 L 94 L Room Air 11/15/23 06:54 Room Air 11/15/23 04:00 69 11/15/23 04:00 98.2 F 71 16 129/50 L 95 Room Air 11/15/23 03:00 Room Air 11/15/23 01:00 Room Air 11/15/23 00:00 68 11/15/23 00:00 97.9 F 70 16 129/54 L 95 Room Air 11/14/23 23:00 Room Air 11/14/23 21:00 Room Air 11/14/23 20:00 78 18 94 L Room Air 11/14/23 20:00 75 11/14/23 19:26 98.1 F 78 18 131/54 L 94 L Room Air 11/14/23 18:36 Room Air 11/14/23 16:45 Room Air 11/14/23 16:00 65 11/14/23 15:49 98.1 F 75 18 131/59 L 97 Room Air 11/14/23 15:00 Room Air 11/14/23 13:00 Room Air 11/14/23 12:00 70 Intake and Output 11/14/23 11/15/23 11/15/23 23:59 07:59 15:59 Intake Total 120 / 240 120 / 240 Output Total 0 / 0 Balance 120 / 240 120 / 240 Intake: Intake, Oral Amount 120 / 240 120 / 240 Output: Output, Urine Amount 0 / 0 Other: Number of Unmeasured Voids 1 Weight 66.905 kg Patient Weight 11/15/23 23:59 Weight 66.905 kg Laboratory Results - last 24 hr 11/14/23 08:48: NT-Pro-B Natriuret Pep 732 H 11/14/23 22:16: PT 14.4 H, INR 1.32 H, Ammonia < 9 L 11/15/23 06:14: WBC 7.6 D, RBC 2.94 L, Hgb 8.3 L, Hct 26.1 L, MCV 88.9, MCH 28.3, MCHC 31.9, RDW 16.4, Plt Count 371, MPV 8.7, Neut % (Auto) 68.6, Lymph % (Auto) 19.3, [place] % (Auto) 8.8, Eos % (Auto) 2.8, Baso % (Auto) 0.5, Neut # (Auto) 5.2, Lymph # (Auto) 1.5, [place] # (Auto) 0.7, Eos # (Auto) 0.2, Baso # (Auto) 0.0, Sodium 130 L, Potassium 2.9 L*, Chloride 97 L, Carbon Dioxide 25, Anion Gap 10.9, BUN 19 H, Creatinine 0.80, Estimated Creat Clear 47, Estimated GFR 69, Est GFR ( Amer) 84, Glucose 76, Calcium 7.9 L, Magnesium 1.5 L, Total Bilirubin 1.7 H, AST 68 H, ALT 10 L, Alkaline Phosphatase 300 H, Total Protein 5.3 L, Albumin 2.6 L, Globulin 2.7, Albumin/Globulin Ratio 1.0 L I & O for Labs for Last 24 Hours: Intake & Output 11/12/23 11/13/23 11/14/23 11/15/23 23:59 23:59 23:59 23:59 Intake Total 100 / 220 240 / 240 Output Total 0 / 0 Balance 100 / 220 240 / 240 Weight 64.41 kg 66.905 kg Constitutional: Present no acute distress, average body habitus, chronically ill appearing and cooperative Head: Present atraumatic and normocephalic ENT: Present normal exam Neck: Present normal inspection Respiratory: Present normal respiratory effort; Absent rhonchi, wheezes or crackles Cardiac: Present Reg Rate and Rhythm GI: Present distention and normal bowel sounds; Absent tenderness, guarding or rebound Extremities: Present normal inspection and full ROM Skin: Present intact; Absent erythema Neuro: Present Grossly Intact, alert, awake, oriented x 3 and moves all extremities Assessment and Plan *Assessment and plan (1) Anemia: Status: Acute Category: Medical Code(s): D64.9 - Anemia, unspecified (2) Liver mass: Status: Acute Category: Medical Code(s): R16.0 - Hepatomegaly, not elsewhere classified (3) Unintended weight loss: Status: Acute Category: Medical Code(s): R63.4 - Abnormal weight loss (4) Early satiety: Status: Acute Category: Medical Code(s): R68.81 - Early satiety (5) Abdominal distension: Status: Acute Category: Medical Code(s): R14.0 - Abdominal distension (gaseous) (6) Hyponatremia: Status: Acute Category: Medical Code(s): E87.1 - Hypo-osmolality and hyponatremia (7) Weakness: Status: Acute Category: Medical Code(s): R53.1 - Weakness (8) Fatigue: Status: Acute Category: Medical Code(s): R53.83 - Other fatigue (9) (HFpEF) heart failure with preserved ejection fraction: Status: Acute Category: Medical Code(s): I50.30 - Unspecified diastolic (congestive) heart failure (10) Coronary artery disease: Status: Acute Category: Medical Code(s): I25.10 - Atherosclerotic heart disease of [place] coronary artery without angina pectoris (11) Severe protein-calorie malnutrition: Status: Acute Category: Medical Code(s): E43 - Unspecified severe protein-calorie malnutrition Plan 78-year-old female with history of heart failure preserved ejection fraction, worsening fatigue over the past few months, unintentional weight loss, and recent heart cath with 2 stents placed approximately 1 month ago. Presented to cardiology clinic for follow-up. Concern for worsening fatigue and unclear weight loss. Discussed case with cardiology provider who requested admission for further workup of her dyspnea that he does not believe is secondary to her heart disease. I agreed to admit for further workup. Concerning report of shortness of breath relieved by laying flat, worse with exertion, Increased abdominal distention and early satiety, unintentional weight loss. Workup concerning for new diagnosis of multiple liver masses along with subcapsular hematoma. Cardiology consulted to assist with management of CAD and recent stenting along with dual antiplatelet therapy. Continues to necessitate inpatient management. High risk for decompensation. Problems addressed as follows: Liver masses suspected to be primary or metastatic cancer unintentional weight loss Dyspnea with exertion Abdominal distention and early satiety -CT abdomen with and without personally reviewed, numerous masses of various density identified on CT of contrast. Has hematoma with no active extravasation per my review. Hematoma appears to be subcapsular. Liver is enlarged and expands across upper abdomen. Findings most concerning for cancer, would benefit from biopsy. Unsafe at this time given dual antiplatelet therapy. -Hemoglobin 8.3 this morning. Down from yesterday. No active external signs of bleeding. Concern for possible bleeding in her hematoma however also received some fluids. Serial H&H every 12. Low threshold for transfusion if continuing to drop. Repeat H&H ordered for this evening, CBC, CMP, magnesium ordered for the morning. - White count down this morning at 7.6, platelets 371 -INR elevated at 1.3 -Sodium stable at 130, potassium 2.9, will replace IV and oral today. -Kidney function normal with BUN 19, creatinine 0.8 -Hepatitis panel pending -CEA pending -Will schedule appointment with oncology later this week, would benefit from needle biopsy of lesions in the liver 5 to 7 days after holding dual antiplatelet therapy 5 to 7 days after holding DAPT No bowel movement in several days. Initiate MiraLAX x 1, fiber supplement twice daily. CAD with recent stenting Heart failure with preserved ejection fraction -Cardiology consulted, recommend holding aspirin and Plavix that she is 1 month out and did not have OK. Will hold until able to perform biopsy. -Blood pressure soft, will hold carvedilol, Lasix, HCTZ. Anemia: -Likely secondary to anticoagulants and subcapsular hematoma. -Platelets 371, decrease in level today of hemoglobin from 9-8. Concern for delutional as all cell lines decreased. Repeat H&H this afternoon. -Continue Protonix 40 mg IV twice daily. Holding on anticoagulation including aspirin and Plavix Lower extremity peripheral neuropathy: Continue carbidopa/levodopa 2 tablets 4 times a day and ropinirole 0.25 mg 4 times a day per home regimen. She has been on this for years from her neurologist. Neurosurgeon. Full code Holding anticoagulation in setting of subcapsular hematoma and worsening anemia Regular diet
[2023-11-15] MEDS: POLYETHYLENE GLYCOL 3350 17 GM PACKET PO (15:22)
[2023-11-15 16:57] LABS: Hemoglobin 8.6 g/dL (12.2-16.2)
[2023-11-15 17:18] LABS: Chloride 99 mmol/L (98-107)
[2023-11-15 17:19] LABS: Sodium 128 mmol/L (136-145)
[2023-11-15 17:21] LABS: Blood Urea Nitrogen 17 mg/dl (7-17); Creatinine Clearance Estimated 47 mL/min (50-200); Estimated Glomerular Filt Rate 81 ml/min (>60); GFR (African American) 97 ML/MIN (>60)
[2023-11-15 17:22] LABS: Calcium 7.8 mg/dl (8.4-10.2); Carbon Dioxide 25 mmol/L (22.0-30.0); Glucose 98 mg/dl (74-100); Magnesium 1.9 mg/dl (1.6-2.3)
[2023-11-15 17:34] LABS: Occult Blood,Stool Negative (Negative)
[2023-11-15] MEDS: SODIUM CHLORIDE 0.9% 10ML VIAL 10 ML IV (20:13)
[2023-11-15] MEDS: AMITRIPTYLINE 50MG TABLET 50 MG PO (20:13)
[2023-11-15] MEDS: CALCIUM POLYCARBOPHIL 625MG TAB 1250 MG PO (20:13)
[2023-11-15] MEDS: CARVEDILOL 6.25MG TABLET 6.25 MG PO (20:13)
--- NOTE | 2023-11-15 20:17 | PC.NURSE ---
patient is c/o soa while at rest. oxygen 90%. added 1L NC for comfort with improved sats >90%.
[2023-11-16] VITALS (7 sets, daily range): BP systolic 120–134; BP diastolic 48–62; PULSE 60–80; RESP 16–20; TEMP 36.4–36.7; O2SAT 94–97; BMI 29.7
[2023-11-16 05:09] LABS: HBsAg Screen Negative (Negative); HCV Ab Non Reactive (Non Reactive); Hep A Ab, IGM Negative (Negative); Hep B Core Ab, IgM Negative (Negative)
[2023-11-16 06:35] LABS: Basophils % 0.6 % (0.1-2.0); Eosinophils # 0.2 K/mm3 (0.0-0.4); Eosinophils % 3.5 % (0.1-12.0); Hematocrit 28.9 % (37.0-47.0); Hemoglobin 8.8 g/dL (12.2-16.2); Lymphocytes # 1.3 K/mm3 (0.7-4.5); Lymphocytes % 19.2 % (10-50); Mean Corpuscular HGB Conc 30.6 g/dL (31.8-35.4); Mean Corpuscular Hemoglobin 28.2 pg (27.0-31.2); Mean Corpuscular Volume 92.1 fl (81-99); Mean Platelet Volume 8.7 fl (7.4-10.4); Monocytes # 0.7 K/mm3 (0.1-1.0); Neutrophils # 4.3 K/mm3 (1.8-7.8); Neutrophils % 66.7 % (37.0-80.0); Platelet Count 386 K/mm3 (142-424); Red Blood Count 3.13 M/mm3 (4.20-5.40); Red Cell Distribution Width 16.5 % (11.5-17.5); White Blood Count 6.5 K/mm3 (4.8-10.8)
[2023-11-16 06:50] LABS: Alanine Aminotransferase 11 U/L (12-78); Albumin Level 2.6 g/dl (3.5-5.0); Alkaline Phosphatase 385 U/L (38-126); Anion Gap 8.4 mEq/L (5-15); Aspartate Amino Transferase 74 U/L (14-36); Bilirubin,Total 2.1 mg/dl (0.2-1.3); Blood Urea Nitrogen 15 mg/dl (7-17); Calcium 7.9 mg/dl (8.4-10.2); Carbon Dioxide 25 mmol/L (22.0-30.0); Chloride 101 mmol/L (98-107); Creatinine Clearance Estimated 49 mL/min (50-200); Estimated Glomerular Filt Rate 81 ml/min (>60); GFR (African American) 97 ML/MIN (>60); Globulin 2.7 g/dL (1.3-3.2); Glucose 90 mg/dl (74-100); Magnesium 1.9 mg/dl (1.6-2.3); Potassium 4.4 mmoL/L (3.5-5.1); Sodium 130 mmol/L (136-145); Total Protein,Serum 5.3 g/dl (6.3-8.2)
[2023-11-16 08:48] LABS: CEA <0.6 ng/mL (0.0-4.7)
[2023-11-16] MEDS: CARBIDOPA/LEVODOPA 25/100MG TABLET 2 EACH PO ×4 (09:07→20:30)
[2023-11-16] MEDS: ROPINIROLE HCL 0.25 MG TABLET PO ×4 (09:07→20:30)
[2023-11-16] MEDS: CARVEDILOL 6.25MG TABLET 6.25 MG PO ×2 (09:07→20:30)
[2023-11-16] MEDS: CALCIUM POLYCARBOPHIL 625MG TAB 1250 MG PO ×2 (09:07→20:30)
[2023-11-16] MEDS: hydroCHLOROthiazide 12.5MG CAPSULE 12.5 MG PO (09:07)
[2023-11-16] MEDS: SODIUM CHLORIDE 0.9% 10ML VIAL 10 ML IV (09:08)
[2023-11-16] MEDS: FUROSEMIDE 40 MG TABLET PO (09:08)
[2023-11-16] MEDS: PANTOPRAZOLE 40MG VIAL 40 MG IV ×2 (09:08→20:30)
--- NOTE | 2023-11-16 09:38 | P.PN_ITS ---
Subjective Subjective Date: 11/16/23 Time: 08:30 Interval history: Doing well, vitals stable, labs reviewed. Exam Data for Last 24 hours Vital signs and Labs for Last 24 Hours: Temp Pulse Resp BP Pulse Ox O2 Del Method O2 Flow Rate 98.0 F 74 20 132/61 97 Room Air 1 11/16/23 07:34 11/16/23 07:34 11/16/23 07:34 11/16/23 07:34 11/16/23 07:34 11/16/23 07:56 11/16/23 01:00 Laboratory Results - last 24 hr 11/14/23 22:16: Carcinoembryonic Ag <0.6, Hepatitis A IgM Ab Negative, Hep Bs A ntigen Negative, Hep B Core IgM Ab Negative, Hepatitis C Antibody Non reactive 11/15/23 16:28: Stool Occult Blood Negative 11/15/23 16:50: Hgb 8.6 L, Hct 27.0 L, Sodium 128 L, Potassium 4.0 D, Chloride 99, Carbon Dioxide 25, Anion Gap 8.0, BUN 17, Creatinine 0.70, Estimated Creat Clear 47, Estimated GFR 81, Est GFR ( Amer) 97, Glucose 98 D, Calcium 7.8 L, Magnesium 1.9 D 11/16/23 06:05: WBC 6.5, RBC 3.13 L, Hgb 8.8 L, Hct 28.9 L, MCV 92.1, MCH 28.2, MCHC 30.6 L, RDW 16.5, Plt Count 386, MPV 8.7, Neut % (Auto) 66.7, Lymph % (Auto) 19.2, [place] % (Auto) 10.0 H, Eos % (Auto) 3.5, Baso % (Auto) 0.6, Neut # (Auto) 4.3, Lymph # (Auto) 1.3, [place] # (Auto) 0.7, Eos # (Auto) 0.2, Baso # (Auto) 0.0, Sodium 130 L, Potassium 4.4, Chloride 101, Carbon Dioxide 25, Anion Gap 8.4, BUN 15, Creatinine 0.70, Estimated Creat Clear 49, Estimated GFR 81, Est GFR ( Amer) 97, Glucose 90, Calcium 7.9 L, Magnesium 1.9, Total Bilirubin 2.1 H, AST 74 H, ALT 11 L, Alkaline Phosphatase 385 H, Total Protein 5.3 L, Albumin 2.6 L, Globulin 2.7, Albumin/Globulin Ratio 1.0 L Temp Pulse Resp BP Pulse Ox O2 Del Method 97.8 F 75 16 115/41 L 94 L Room Air 11/15/23 07:43 11/15/23 08:00 11/15/23 07:43 11/15/23 07:43 11/15/23 07:43 11/15/23 07:43 Laboratory Results - last 24 hr 11/14/23 08:44: Sodium 130 L, Potassium 3.2 L, Chloride 97 L, Carbon Dioxide 26, Anion Gap 10.2, BUN 19 H, Creatinine 0.90, Estimated GFR 60, Est GFR ( Amer) 73, Glucose 87, Calcium 7.8 L 11/14/23 08:48: NT-Pro-B Natriuret Pep 732 H 11/14/23 22:16: PT 14.4 H, INR 1.32 H, Ammonia < 9 L 11/15/23 06:14: WBC 7.6 D, RBC 2.94 L, Hgb 8.3 L, Hct 26.1 L, MCV 88.9, MCH 28.3, MCHC 31.9, RDW 16.4, Plt Count 371, MPV 8.7, Neut % (Auto) 68.6, Lymph % (Auto) 19.3, [place] % (Auto) 8.8, Eos % (Auto) 2.8, Baso % (Auto) 0.5, Neut # (Auto) 5.2, Lymph # (Auto) 1.5, [place] # (Auto) 0.7, Eos # (Auto) 0.2, Baso # (Auto) 0.0, Sodium 130 L, Potassium 2.9 L*, Chloride 97 L, Carbon Dioxide 25, Anion Gap 10.9, BUN 19 H, Creatinine 0.80, Estimated Creat Clear 47, Estimated GFR 69, Est GFR ( Amer) 84, Glucose 76, Calcium 7.9 L, Magnesium 1.5 L, Total Bilirubin 1.7 H, AST 68 H, ALT 10 L, Alkaline Phosphatase 300 H, Total Protein 5.3 L, Albumin 2.6 L, Globulin 2.7, Albumin/Globulin Ratio 1.0 L I & O for Last 24 hours: Intake & Output 11/13/23 11/14/23 11/15/23 11/16/23 23:59 23:59 23:59 23:59 Intake Total 100 / 220 1290 / 1290 270 / 270 Output Total 0 / 0 0 / 0 Balance 100 / 220 1290 / 1290 270 / 270 Weight 142 lb 147 lb 7.828 oz 151 lb 11.2 oz Intake & Output 11/12/23 11/13/23 11/14/23 11/15/23 23:59 23:59 23:59 23:59 Intake Total 100 / 220 240 / 240 Output Total 0 / 0 Balance 100 / 220 240 / 240 Weight 142 lb 147 lb 8 oz Constitutional Constitutional: no acute distress *Routine Respiratory Exam Respiratory: Present CTA bilaterally and symmetric chest movement *Routine Cardiovascular Exam Cardiovascular: Present RRR, Normal S1 and Normal S2 *Routine Abdominal Exam Abdominal: Present distended *Routine Extremities Exam Extremities: Present full ROM and normal capillary refill; Absent edema *Routine Skin Exam Skin: Present intact, dry and warm Detailed Neck Exam: Thyroids Thyroid: Absent bruit Progress Note: A&P Assessment and plan (1) Anemia: Status: Acute (2) Liver mass: Status: Acute (3) Unintended weight loss: Status: Acute (4) Early satiety: Status: Acute (5) Abdominal distension: Status: Acute (6) Hyponatremia: Status: Acute (7) Weakness: Status: Acute (8) Fatigue: Status: Acute (9) (HFpEF) heart failure with preserved ejection fraction: Status: Acute (10) Coronary artery disease: Status: Acute (11) Severe protein-calorie malnutrition: Status: Acute Assessment and Plan Assessment and Plan for All Diagnoses:: Liver lesions concerning for metastatic disease Generalized weakness Abdominal distention Unintentional weight loss CT abdomen pelvis 11/14/2023: Enlarged liver with multiple hepatic lesions favoring metastatic disease and a collection between the liver and stomach which could be a hematoma, pseudocyst or other complex fluid collection. CT abdomen with contrast 11/14/2023: Markedly abnormal appearance of the liver concerning for metastatic malignancies, largest lesion measures 12cm and a 10cm fluid collection posterior to the left lobe of the liver raises concern for an organized hematoma, possibly representing bleeding from underlying large left lobe liver lesion. CT chest- negative for acute process Defer to primary service Anemia Drop in hemoglobin from 12-8.3 in less than a month status post stenting and starting DAPT therapy. stable this morning at 8.8. Fluid collection noted on CT abdomen- possible hematoma Hold Dapt therapy Hypokalemia-resolved Hypomagnesemia-resolved Potassium resolved-4.4 this morning Magnesium resolved- 1.9 this morning CAD Recent stenting to LAD and large first obtuse marginal-10/02 Continue carvedilol 6.25 mg po BID. Statin intolerant Dapt on hold due to anemia and possible abdominal hematoma Chronic HFpEF Echo 08/2023: Normal biventricular function, biatrial dilation, mild AI, mild MR Lasix 40mg po daily and hctz 12.5mg po daily. Consider adding Jardiance later CV summary 11/16/2023: Hold Dapt therapy due to anemia and possible liver hematoma/bleeding liver lesion. Patient is going to see Dr. De Leon and have liver biopsy done on Tuesday or Tuesday of this coming week. Patient can hold DAPT therapy until after biopsy and have cardiology clinic follow-up on Tuesday or of next week. Cardiac meds Carvedilol 6.25 mg p.o. twice daily Lasix 40 mg p.o. daily Hydrochlorothiazide 12.5 mg p.o. daily DAPT on hold
--- NOTE | 2023-11-16 09:45 | P.DS_ITS ---
General Admission date:: 11/14/23 Discharge date: 11/17/23 HPI HPI HPI: Ms. Mcdonald is an 78-year-old female who has a history of diastolic dysfunction, CAD, who presented approximately 4 weeks ago on 10/02 for elective heart cath. Had severe two-vessel disease identified at that time with successful stenting of the proximal LAD and proximal mid large first obtuse marginal. Since her heart cath she states she has been feeling more short of breath and fatigued. Barely has energy to get around the house. Denies any chest pain, nausea, vomiting, diarrhea. States she has had some upset stomach for which she has taken Pepto-Bismol the past week which is caused her to have some darker stools. On further questioning, she reports she has been having some abdominal distention and early satiety over the past 2+ months. Also noted to have weight loss over the past 4 months of a little over 10 pounds. States she is more short of breath when she is up moving around. Feels better when she lays flat. Denies any cough, headache, confusion. Of note she fell a week ago bruising her left leg and spraining her ankle but it is healing and she is feeling better. Was brought to cardiology clinic today for elective/routine follow-up. Due to concern for worsening decline, debility, fatigue, cardiology requested admission for further workup and management. presented with her on admission. Son and daughter at bedside later in the afternoon. Reports history of hepatitis B as a child, underwent treatment around the age of 4. Labs drawn prior to admission by cardiology that show anemia with hemoglobin of 9, hemoglobin 12 prior to her heart cath. She additionally adds that she has a history of suspected multiple myeloma that was treated monitored by Dr. Anahy Kaplan in [place] for several years. Not under any care or treatment at this time. On room air, alert and oriented x 4. Hospital Course Hospital Course Hospital Course: 78-year-old female with history of heart failure preserved ejection fraction, worsening fatigue over the past few months, unintentional weight loss, and recent heart cath with 2 stents placed approximately 1 month ago. Presented to cardiology clinic for follow-up. Concern for worsening fatigue and unclear weight loss. Discussed case with cardiology provider who requested admission for further workup of her dyspnea that he does not believe is secondary to her heart disease. I agreed to admit for further workup. Concerning report of shortness of breath relieved by laying flat, worse with exertion, Increased abdominal distention and early satiety, unintentional weight loss. Workup concerning for new diagnosis of multiple liver masses along with subcapsular hematoma. Cardiology consulted to assist with management of CAD and recent stenting along with dual antiplatelet therapy. Patient had intermittent abdominal pain during admission. Needs outpatient oncology follow-up and IR guided biopsy of liver mass for definitive diagnosis. As her hemoglobin remained stable, she is clinically stable to discharge home with home health for further outpatient workup in the immediate future. Scheduled close follow-up with oncology on Tuesday this coming week. Will defer biopsy to oncology at that time. Problems addressed as follows: Liver masses suspected to be primary or metastatic cancer unintentional weight loss Dyspnea with exertion Abdominal distention and early satiety -Patient presented with progressive shortness of breath and weakness over the past 1 to 2 months. Status post heart cath a month ago. No improvement in her symptoms. Admitted for further workup. CT of abdomen showed enlarged liver with numerous masses. CT with contrast obtained again showing countless masses in her liver, has subcapsular hematoma with no active flash or blush. Does not appear to be actively bleeding. Does have anemia however. Hemoglobin in the low nines. Dropped from 12 at time of heart cath. Decreased during admission after IV fluids into the mid 8 range. Remained stable, 8.4 on day of discharge. Holding her dual antiplatelet therapy, see below. Hepatitis panel negative. CEA less than 0.6. Kidney function and electrolytes with minor abnormalities. Stable hyponatremia at 1 28-1 30. Magnesium and potassium intermittently low necessitating replacement. Liver function surprisingly unremarkable with bilirubin 1.9, AST and ALT 66 and 8 respectively. Alkaline phosphatase elevated however at 389. Strong concern for findings consistent with metastatic cancer or diffuse hepatocellular carcinoma. Currently holding her dual antiplatelet therapy, will open held for 7 days by the time of her appointment with oncology. Continue fiber daily for constipation. Bowel movement last night. CAD with recent stenting Heart failure with preserved ejection fraction -Cardiology consulted, recommend holding aspirin and Plavix that she is 1 month out and did not have NC. Will hold until able to perform biopsy. Needs to resume aspirin and Plavix after her biopsy. Blood pressures remained soft during admission. Initially held blood pressure meds, okay to resume at discharge as her blood pressure has improved in light of her heart disease. Anemia: -Likely secondary to anticoagulants and subcapsular hematoma. Hemoglobin mid 9 on admission, decreased to mid 8 range. Remained stable for 48 hours. No transfusions necessary. Likely source of anemia is acute on chronic. Does not appear to have active bleeding on CT contrast for hematoma. Continue omeprazole at discharge. Continue holding anticoagulation including aspirin and Plavix until follows with cardiology. Discussed resuming at that time. Lower extremity peripheral neuropathy: Continue carbidopa/levodopa 2 tablets 4 times a day and ropinirole 0.25 mg 4 times a day per home regimen. She has been on this for years from her Neurosurgeon. Patient has remained hemodynamically stable with low but stable hemoglobin at 8.4-8.5 for 48 hours. Working with therapy, would benefit from home health. Needs close follow-up with oncology and interventional radiology for further management and diagnosis of her liver masses. Stable discharge home. Provided with nausea medication and low-dose pain medication after discharge due to some intermittent nausea and pain. Minimal pain meds required during admission. Most pain is in her upper abdomen associated with her liver. Will continue supplemental oxygen due to oxygen saturation of 88% at rest on room air on day of discharge on my exam. Necessitating 2 L supplemental oxygen continuously. Total time spent on discharge 38 minutes in counseling, documentation, chart review, and direct care with patient. Exam Data for Last 24 hours Vital signs and Labs for Last 24 Hours: Temp Pulse Resp BP Pulse Ox O2 Del Method O2 Flow Rate 98.0 F 74 20 132/61 97 Room Air 1 11/16/23 07:34 11/16/23 07:34 11/16/23 07:34 11/16/23 07:34 11/16/23 07:34 11/16/23 07:56 11/16/23 01:00 Laboratory Results - last 24 hr 11/14/23 22:16: Carcinoembryonic Ag <0.6, Hepatitis A IgM Ab Negative, Hep Bs Antigen Negative, Hep B Core IgM Ab Negative, Hepatitis C Antibody Non reactive 11/15/23 16:28: Stool Occult Blood Negative 11/15/23 16:50: Hgb 8.6 L, Hct 27.0 L, Sodium 128 L, Potassium 4.0 D, Chloride 99, Carbon Dioxide 25, Anion Gap 8.0, BUN 17, Creatinine 0.70, Estimated Creat Clear 47, Estimated GFR 81, Est GFR ( Amer) 97, Glucose 98 D, Calcium 7.8 L, Magnesium 1.9 D 11/16/23 06:05: WBC 6.5, RBC 3.13 L, Hgb 8.8 L, Hct 28.9 L, MCV 92.1, MCH 28.2, MCHC 30.6 L, RDW 16.5, Plt Count 386, MPV 8.7, Neut % (Auto) 66.7, Lymph % (Auto) 19.2, [place] % (Auto) 10.0 H, Eos % (Auto) 3.5, Baso % (Auto) 0.6, Neut # (Auto) 4.3, Lymph # (Auto) 1.3, [place] # (Auto) 0.7, Eos # (Auto) 0.2, Baso # (Auto) 0.0, Sodium 130 L, Potassium 4.4, Chloride 101, Carbon Dioxide 25, Anion Gap 8.4, BUN 15, Creatinine 0.70, Estimated Creat Clear 49, Estimated GFR 81, Est GFR ( Amer) 97, Glucose 90, Calcium 7.9 L, Magnesium 1.9, Total Bilirubin 2.1 H, AST 74 H, ALT 11 L, Alkaline Phosphatase 385 H, Total Protein 5.3 L, Albumin 2.6 L, Globulin 2.7, Albumin/Globulin Ratio 1.0 L I & O for Last 24 hours: Intake & Output 11/13/23 11/14/23 11/15/23 11/16/23 23:59 23:59 23:59 23:59 Intake Total 100 / 220 1290 / 1290 270 / 270 Output Total 0 / 0 0 / 0 Balance 100 / 220 1290 / 1290 270 / 270 Weight 64.41 kg 66.9 kg 68.81 kg Constitutional Constitutional: no acute distress, average body habitus, chronically ill appearing and cooperative *Routine HEENT Exam Head: Present normocephalic Eye: Present EOMI and PERRL ENT: Present mucous membranes moist *Routine Neck Exam Neck: Present supple; Absent lymphadenopathy *Routine Respiratory Exam Respiratory: Present CTA bilaterally; Absent rhonchi, wheezes or crackles *Routine Cardiovascular Exam Cardiovascular: Present RRR *Routine Abdominal Exam Abdominal: Present soft, normoactive bowel sounds, tenderness (Mild in the upper abdomen) and distended; Absent rebound Comments: Palpable liver, coarse *Routine Rectal Exam Patient deferred: visual exam *Routine Exam Patient deferred: external exam *Routine Extremities Exam Extremities: Absent cyanosis, clubbing or edema Comments: Bruise on left lower chi from fall *Routine Skin Exam Skin: Present warm; Absent rash *Routine Neurological Exam Neurological: Present alert, oriented X3 and moving all extremities; Absent altered mental status Results Data Completed and Pending Labs on day of discharge: Labs from last 24 hours 11/16/23 11/15/23 11/15/23 06:05 16:50 16:28 WBC 6.5 RBC 3.13 L Hgb 8.8 L 8.6 L Hct 28.9 L 27.0 L MCV 92.1 MCH 28.2 MCHC 30.6 L RDW 16.5 Plt Count 386 MPV 8.7 Neut % (Auto) 66.7 Lymph % (Auto) 19.2 [place] % (Auto) 10.0 H Eos % (Auto) 3.5 Baso % (Auto) 0.6 Neut # (Auto) 4.3 Lymph # (Auto) 1.3 [place] # (Auto) 0.7 Eos # (Auto) 0.2 Baso # (Auto) 0.0 Sodium 130 L 128 L Potassium 4.4 4.0 D Chloride 101 99 Carbon Dioxide 25 25 Anion Gap 8.4 8.0 BUN 15 17 Creatinine 0.70 0.70 Estimated Creat Clear 49 47 Estimated GFR 81 81 Est GFR ( Amer) 97 97 Glucose 90 98 D Calcium 7.9 L 7.8 L Magnesium 1.9 1.9 D Total Bilirubin 2.1 H AST 74 H ALT 11 L Alkaline Phosphatase 385 H Total Protein 5.3 L Albumin 2.6 L Globulin 2.7 Albumin/Globulin Ratio 1.0 L Carcinoembryonic Ag Stool Occult Blood Negative Hepatitis A IgM Ab Hep Bs Antigen Hep B Core IgM Ab Hepatitis C Antibody 11/14/23 22:16 WBC RBC Hgb Hct MCV MCH MCHC RDW Plt Count MPV Neut % (Auto) Lymph % (Auto) [place] % (Auto) Eos % (Auto) Baso % (Auto) Neut # (Auto) Lymph # (Auto) [place] # (Auto) Eos # (Auto) Baso # (Auto) Sodium Potassium Chloride Carbon Dioxide Anion Gap BUN Creatinine Estimated Creat Clear Estimated GFR Est GFR ( Amer) Glucose Calcium Magnesium Total Bilirubin AST ALT Alkaline Phosphatase Total Protein Albumin Globulin Albumin/Globulin Ratio Carcinoembryonic Ag <0.6 Stool Occult Blood Hepatitis A IgM Ab Negative Hep Bs Antigen Negative Hep B Core IgM Ab Negative Hepatitis C Antibody Non reactive DS: Diagnosis Discharge Diagnosis (1) Anemia: Status: Acute Code(s): D64.9 - Anemia, unspecified (2) Liver mass: Status: Acute Code(s): R16.0 - Hepatomegaly, not elsewhere classified (3) Unintended weight loss: Status: Acute Code(s): R63.4 - Abnormal weight loss (4) Early satiety: Status: Acute Code(s): R68.81 - Early satiety (5) Abdominal distension: Status: Acute Code(s): R14.0 - Abdominal distension (gaseous) (6) Hyponatremia: Status: Acute Code(s): E87.1 - Hypo-osmolality and hyponatremia (7) Weakness: Status: Acute Code(s): R53.1 - Weakness (8) Fatigue: Status: Acute Code(s): R53.83 - Other fatigue (9) (HFpEF) heart failure with preserved ejection fraction: Status: Acute Code(s): I50.30 - Unspecified diastolic (congestive) heart failure (10) Coronary artery disease: Status: Acute Code(s): I25.10 - Atherosclerotic heart disease of [place] coronary artery without angina pectoris (11) Severe protein-calorie malnutrition: Status: Acute Code(s): E43 - Unspecified severe protein-calorie malnutrition Meds Home Medications and Allergies Home Medications ?Medication ?Instructions ?Recorded ?Confirmed ?Type ropinirole 0.25 mg tablet (Requip) 0.25 mg PO QID 10/31/17 11/14/23 History carbidopa 25 mg-levodopa 100 mg 2 tab PO QID 07/01/20 11/14/23 History tablet amitriptyline 10 mg tablet 10 mg PO TIDWMEAL 11/03/21 11/14/23 History clopidogrel 75 mg tablet (Plavix) 75 mg PO DAILY 30 days #30 tabs 10/03/23 11/14/23 Rx carvedilol 6.25 mg tablet (Coreg) 6.25 mg PO BID #60 tabs 11/10/23 11/14/23 Rx hydrochlorothiazide 12.5 mg capsule 12.5 mg PO DAILY #30 caps 11/10/23 11/14/23 Rx amitriptyline 10 mg tablet 50 mg PO HS 11/14/23 11/14/23 History aspirin 81 mg tablet,delayed 81 mg PO DAILY 11/14/23 11/14/23 History release furosemide 40 mg tablet 40 mg PO DAILY 11/14/23 11/14/23 History omeprazole 40 mg capsule,delayed 40 mg PO DAILY 11/14/23 11/14/23 History release hydrocodone 5 mg-acetaminophen 325 1 tab PO Q6H PRN pain #12 tabs 11/17/23 Rx mg tablet ondansetron 4 mg disintegrating 4 mg PO Q8H PRN nausea and 11/17/23 Rx tablet vomiting #20 tabs New Prescriptions to Start Prescriptions: pankajodone-acetaminophen Harsh MindansHarsh Rasmussen Allergies Allergy/AdvReac Type Severity Reaction Status Date / Time Cephalosporins Allergy Unknown Verified 11/14/23 09:12 clarithromycin [From Biaxin] Allergy Unknown Verified 11/14/23 09:12 Macrolide Antibiotics Allergy Unknown Verified 11/14/23 09:12 metaxalone [From Skelaxin] Allergy Unknown Verified 11/14/23 09:12 Penicillins Allergy Unknown Verified 11/14/23 09:12 Tetracyclines Allergy Unknown Verified 11/14/23 09:12 Oaxllgf-BKQ-[id number] Reductase AdvReac Severe Verified 11/14/23 09:12 Inhibitor codeine AdvReac Mild NA-NAUSEA/V Verified 11/14/23 09:12 OMITING rosuvastatin AdvReac Fatigued Verified 11/14/23 09:12 Discharge Plan Disposition Patient Disposition: Home Health Service Condition: Fair Discharge Order Discharge Orders: Discharge Order (Routine); Ordered 11/17/23 Ordered By: Harsh Min Follow up Plan Follow up with: Irene Greco APRN [Nurse Practitioner] - 11/23/23 11:15 am Josiah De Leon MD [Staff Physician] - 11/22/23 1:00 pm Prescriptions/Medication Reconciliation: New ondansetron 4 mg tablet,disintegrating 4 mg PO Q8H PRN (Reason: nausea and vomiting) Qty: 20 0RF hydrocodone-acetaminophen 5-325 mg tablet 1 tab PO Q6H PRN (Reason: pain) Qty: 12 0RF Rx Instructions: 1/2 to 1 tab as needed for pain Continued ropinirole [Requip] 0.25 mg tablet 0.25 mg PO QID amitriptyline 10 mg tablet 10 mg PO TIDWMEAL carvedilol [Coreg] 6.25 mg tablet 6.25 mg PO BID Qty: 60 2RF Rx Instructions: must administer with a meal/food hydrochlorothiazide 12.5 mg capsule 12.5 mg PO DAILY Qty: 30 2RF carbidopa-levodopa 25-100 mg tablet 2 tab PO QID amitriptyline 10 mg tablet 50 mg PO HS Patient Comments: TAKE 1 TABLET BY MOUTH 3 TIMES DAILY WITH MEALS AND 5 AT BEDTIME furosemide 40 mg tablet 40 mg PO DAILY Rx Instructions: TAKE 1 TABLET BY MOUTH DAILY omeprazole 40 mg capsule,delayed release(DR/EC) 40 mg PO DAILY Rx Instructions: TAKE 1 CAPSULE BY MOUTH DAILY Held clopidogrel [Plavix] 75 mg Tablet 75 mg PO DAILY 30 Days Qty: 30 6RF Hold Instructions: Pending follow-up with cardiology and biopsy of liver aspirin 81 mg tablet,delayed release (DR/EC) 81 mg PO DAILY Hold Instructions: Pending follow-up with cardiology and biopsy of liver Patient Comments: TAKE 1 TABLET BY MOUTH ONCE DAILY Other Ambulatory Orders: Home Medical Equipment (Routine) Location: None Selected Ordered By: Hasrh Min Problem Reconciliation Problems Reviewed?: Yes Patient Discharge Instructions ACTIVITY: Continue current activity DIET: continue same diet Patient Instructions: Anemia, DI for Gastrointestinal Bleeding Print Language: Setswana Providers Primary Care Provider: Luis Enrique Sidhu Admit Provider: Harsh Min Attending Provider: Harsh Min
--- NOTE | 2023-11-16 12:11 | P.PN_ITS ---
Subjective *Date: 11/16/23 *Time: 18:22 Interval history: Denies any nausea or vomiting. Had a bowel movement overnight. Denies any chest pain. Does complain of continued shortness of breath however. Stable on room air. Family at bedside. Medical Exam Vital signs and Labs for Last 24 Hours: Vital Signs Temp Pulse Pulse Resp BP Pulse Ox O2 Del Method 11/16/23 11:00 Room Air 11/16/23 09:00 Room Air 11/16/23 07:56 Room Air 11/16/23 07:34 98.0 F 74 20 132/61 97 Room Air 11/16/23 06:42 Room Air 11/16/23 04:53 Room Air 11/16/23 04:00 62 11/16/23 04:00 97.6 F 70 16 134/57 L 96 Room Air 11/16/23 03:00 Room Air 11/16/23 01:00 Nasal Cannula 11/16/23 00:00 72 11/15/23 23:36 97.7 F 69 16 136/61 98 Nasal Cannula 11/15/23 23:00 Nasal Cannula 11/15/23 21:00 Nasal Cannula 11/15/23 20:00 75 11/15/23 20:00 90 L Nasal Cannula 11/15/23 19:47 98.3 F 72 18 127/60 96 Room Air 11/15/23 19:00 Room Air 11/15/23 17:00 Room Air 11/15/23 16:00 70 11/15/23 15:55 98.0 F 73 18 140/70 95 Room Air 11/15/23 15:00 Room Air 11/15/23 13:00 Room Air O2 Flow Rate 11/16/23 11:00 11/16/23 09:00 11/16/23 07:56 11/16/23 07:34 11/16/23 06:42 11/16/23 04:53 11/16/23 04:00 11/16/23 04:00 11/16/23 03:00 11/16/23 01:00 1 11/16/23 00:00 11/15/23 23:36 1 11/15/23 23:00 1 11/15/23 21:00 1 11/15/23 20:00 11/15/23 20:00 1 11/15/23 19:47 11/15/23 19:00 11/15/23 17:00 11/15/23 16:00 11/15/23 15:55 11/15/23 15:00 11/15/23 13:00 Intake and Output 11/15/23 11/16/23 11/16/23 23:59 07:59 15:59 Intake Total 690 / 1290 270 / 270 Output Total 0 / 0 0 / 0 Balance 690 / 1290 0 / 270 270 / 270 Intake: Intake, Oral Amount 420 / 1020 270 / 270 Intake, Other Amount 20 / 20 Intake, Total IV Amount 250 / 250 KCl 20mEq/100ml 100 ml @ 50 mls 100 / 100 /hr IV Q2H MIC Rx#:[id number] Magnesium Sulfate in Water 2 gm 50 / 50 In 50 ml @ 50 mls/hr IV ONCE ONE Rx#:[id number] Potassium Chloride 20 meq 100 / 100 Lidocaine HCl/Pf 3 ml In 0.9 % Sodium Chloride 100 ml @ 56.5 mls/hr IV ONCE ONE Rx#:[id number] Output: Output, Urine Amount 0 / 0 0 / 0 Other: Intake, Other Source Saline Solution Number of Unmeasured Voids 1 1 Number of Bowel Movements 1 Weight 68.81 kg Patient Weight 11/16/23 23:59 Weight 68.81 kg Laboratory Results - last 24 hr 11/14/23 22:16: Carcinoembryonic Ag <0.6, Hepatitis A IgM Ab Negative, Hep Bs Antigen Negative, Hep B Core IgM Ab Negative, Hepatitis C Antibody Non reactive 11/15/23 16:28: Stool Occult Blood Negative 11/15/23 16:50: Hgb 8.6 L, Hct 27.0 L, Sodium 128 L, Potassium 4.0 D, Chloride 99, Carbon Dioxide 25, Anion Gap 8.0, BUN 17, Creatinine 0.70, Estimated Creat Clear 47, Estimated GFR 81, Est GFR ( Amer) 97, Glucose 98 D, Calcium 7.8 L, Magnesium 1.9 D 11/16/23 06:05: WBC 6.5, RBC 3.13 L, Hgb 8.8 L, Hct 28.9 L, MCV 92.1, MCH 28.2, MCHC 30.6 L, RDW 16.5, Plt Count 386, MPV 8.7, Neut % (Auto) 66.7, Lymph % (Auto) 19.2, [place] % (Auto) 10.0 H, Eos % (Auto) 3.5, Baso % (Auto) 0.6, Neut # (Auto) 4.3, Lymph # (Auto) 1.3, [place] # (Auto) 0.7, Eos # (Auto) 0.2, Baso # (Auto) 0.0, Sodium 130 L, Potassium 4.4, Chloride 101, Carbon Dioxide 25, Anion Gap 8.4, BUN 15, Creatinine 0.70, Estimated Creat Clear 49, Estimated GFR 81, Est GFR ( Amer) 97, Glucose 90, Calcium 7.9 L, Magnesium 1.9, Total Bilirubin 2.1 H, AST 74 H, ALT 11 L, Alkaline Phosphatase 385 H, Total Protein 5.3 L, Albumin 2.6 L, Globulin 2.7, Albumin/Globulin Ratio 1.0 L I & O for Labs for Last 24 Hours: Intake & Output 11/13/23 11/14/23 11/15/23 11/16/23 23:59 23:59 23:59 23:59 Intake Total 100 / 220 1290 / 1290 270 / 270 Output Total 0 / 0 0 / 0 Balance 100 / 220 1290 / 1290 270 / 270 Weight 64.41 kg 66.9 kg 68.81 kg Constitutional: Present no acute distress, average body habitus, chronically ill appearing and cooperative Head: Present atraumatic and normocephalic ENT: Present normal exam Neck: Present normal inspection Respiratory: Present normal respiratory effort; Absent rhonchi, wheezes or crackles Cardiac: Present Reg Rate and Rhythm GI: Present distention and normal bowel sounds; Absent tenderness, guarding or rebound Extremities: Present normal inspection and full ROM Skin: Present intact; Absent erythema Neuro: Present Grossly Intact, alert, awake, oriented x 3 and moves all extremities Assessment and Plan *Assessment and plan (1) Anemia: Status: Acute Category: Medical Code(s): D64.9 - Anemia, unspecified (2) Liver mass: Status: Acute Category: Medical Code(s): R16.0 - Hepatomegaly, not elsewhere classified (3) Unintended weight loss: Status: Acute Category: Medical Code(s): R63.4 - Abnormal weight loss (4) Early satiety: Status: Acute Category: Medical Code(s): R68.81 - Early satiety (5) Abdominal distension: Status: Acute Category: Medical Code(s): R14.0 - Abdominal distension (gaseous) (6) Hyponatremia: Status: Acute Category: Medical Code(s): E87.1 - Hypo-osmolality and hyponatremia (7) Weakness: Status: Acute Category: Medical Code(s): R53.1 - Weakness (8) Fatigue: Status: Acute Category: Medical Code(s): R53.83 - Other fatigue (9) (HFpEF) heart failure with preserved ejection fraction: Status: Acute Category: Medical Code(s): I50.30 - Unspecified diastolic (congestive) heart failure (10) Coronary artery disease: Status: Acute Category: Medical Code(s): I25.10 - Atherosclerotic heart disease of [place] coronary artery without angina pectoris (11) Severe protein-calorie malnutrition: Status: Acute Category: Medical Code(s): E43 - Unspecified severe protein-calorie malnutrition Plan 78-year-old female with history of heart failure preserved ejection fraction, worsening fatigue over the past few months, unintentional weight loss, and recent heart cath with 2 stents placed approximately 1 month ago. Presented to cardiology clinic for follow-up. Concern for worsening fatigue and unclear weight loss. Discussed case with cardiology provider who requested admission for further workup of her dyspnea that he does not believe is secondary to her heart disease. I agreed to admit for further workup. Concerning report of shortness of breath relieved by laying flat, worse with exertion, Increased abdominal distention and early satiety, unintentional weight loss. Workup concerning for new diagnosis of multiple liver masses along with subcapsular hematoma. Cardiology consulted to assist with management of CAD and recent stenting along with dual antiplatelet therapy. Continues to necessitate inpatient management. High risk for decompensation, anticipate discharge in the next day or 2. Problems addressed as follows: Liver masses suspected to be primary or metastatic cancer unintentional weight loss Dyspnea with exertion Abdominal distention and early satiety --Hemoglobin stable. 8.5 this morning. Repeat CBC, CMP, magnesium ordered for the morning. - White count 6.5, platelets 386 -Sodium 130, chloride 101. Potassium 4.4, magnesium 1.9. -Kidney function normal with BUN 15, creatinine 0.7 - Hepatitis panel negative; CEA less than 0.6 -Will schedule appointment with oncology later this week, would benefit from needle biopsy of lesions in the liver 5 to 7 days after holding dual antiplate let therapy 5 to 7 days after holding DAPT Continue fiber daily for constipation. Bowel movement last night. CAD with recent stenting Heart failure with preserved ejection fraction -Cardiology consulted, recommend holding aspirin and Plavix that she is 1 month out and did not have NM. Will hold until able to perform biopsy. -Blood pressure soft, will hold carvedilol, Lasix, HCTZ. Anemia: -Likely secondary to anticoagulants and subcapsular hematoma. -Transfusion threshold hemoglobin less than 7 -Continue Protonix 40 mg IV twice daily. Holding on anticoagulation including aspirin and Plavix Lower extremity peripheral neuropathy: Continue carbidopa/levodopa 2 tablets 4 times a day and ropinirole 0.25 mg 4 times a day per home regimen. She has been on this for years from her neurologist. Neurosurgeon. Full code Holding anticoagulation in setting of subcapsular hematoma and worsening anemia Regular diet
[2023-11-16] MEDS: ONDANSETRON 4MG/2ML VIAL 4 MG IV (19:01)
[2023-11-16] MEDS: AMITRIPTYLINE 50MG TABLET 50 MG PO (20:30)
[2023-11-17] VITALS: BP 109/54; PULSE 67; PULSE 70; RESP 18; TEMP 36.4; O2SAT 90
[2023-11-17 00:02] VITALS: O2SAT 95
[2023-11-17] MEDS: MORPHINE 2MG/ML SYRINGE 2 MG IV (00:11)
[2023-11-17 04:00] VITALS: BP 102/53; PULSE 63; PULSE 64; RESP 18; TEMP 36.5; O2SAT 99; BMI 28.6
--- NOTE | 2023-11-17 05:46 | PC.NURSE ---
RECEIVED MORPHINE 2 MG IVP AT 0011 FOR C/O ABDOMINAL PAIN . HAS NOT HAD ANY MORE PAIN SINCE THEN. 02 AT 2LNC. 02 SATS 99%. NSR/1ST DEGREE AVB NOTED ON TELE. FAMILY MEMBER AT BEDSIDE.
[2023-11-17 06:59] LABS: Alanine Aminotransferase 8 U/L (12-78); Albumin Level 2.5 g/dl (3.5-5.0); Albumin/Globulin Ratio 0.9 (1.1-1.8); Alkaline Phosphatase 389 U/L (38-126); Anion Gap 8.5 mEq/L (5-15); Aspartate Amino Transferase 66 U/L (14-36); Bilirubin,Total 1.9 mg/dl (0.2-1.3); Blood Urea Nitrogen 14 mg/dl (7-17); Calcium 7.9 mg/dl (8.4-10.2); Carbon Dioxide 27 mmol/L (22.0-30.0); Chloride 96 mmol/L (98-107); Creatinine Clearance Estimated 47 mL/min (50-200); Estimated Glomerular Filt Rate 81 ml/min (>60); GFR (African American) 97 ML/MIN (>60); Globulin 2.7 g/dL (1.3-3.2); Glucose 89 mg/dl (74-100); Potassium 3.5 mmoL/L (3.5-5.1); Sodium 128 mmol/L (136-145); Total Protein,Serum 5.2 g/dl (6.3-8.2)
[2023-11-17 07:04] LABS: Basophils # 0.1 K/mm3 (0-0.2); Eosinophils # 0.3 K/mm3 (0.0-0.4); Eosinophils % 4.4 % (0.1-12.0); Hematocrit 27.2 % (37.0-47.0); Hemoglobin 8.4 g/dL (12.2-16.2); Lymphocytes # 1.5 K/mm3 (0.7-4.5); Lymphocytes % 25.4 % (10-50); Mean Corpuscular HGB Conc 30.8 g/dL (31.8-35.4); Mean Corpuscular Hemoglobin 27.7 pg (27.0-31.2); Mean Corpuscular Volume 89.9 fl (81-99); Mean Platelet Volume 9.1 fl (7.4-10.4); Monocytes # 0.7 K/mm3 (0.1-1.0); Monocytes % 11.3 % (1.7-9.3); Neutrophils # 3.4 K/mm3 (1.8-7.8); Neutrophils % 57.8 % (37.0-80.0); Platelet Count 375 K/mm3 (142-424); Red Blood Count 3.02 M/mm3 (4.20-5.40); Red Cell Distribution Width 16.8 % (11.5-17.5); White Blood Count 5.9 K/mm3 (4.8-10.8)
[2023-11-17 07:41] LABS: Magnesium 1.6 mg/dl (1.6-2.3)
[2023-11-17 08:00] VITALS: BP 104/46; PULSE 60; PULSE 72; RESP 18; TEMP 36.4; O2SAT 99
[2023-11-17] MEDS: PANTOPRAZOLE 40MG VIAL 40 MG IV (09:02)
[2023-11-17] MEDS: CARVEDILOL 6.25MG TABLET 6.25 MG PO (09:03)
[2023-11-17] MEDS: SODIUM CHLORIDE 0.9% 10ML VIAL 10 ML IV (09:03)
[2023-11-17] MEDS: ROPINIROLE HCL 0.25 MG TABLET PO (09:03)
[2023-11-17] MEDS: CARBIDOPA/LEVODOPA 25/100MG TABLET 2 EACH PO (09:03)
[2023-11-17] MEDS: FUROSEMIDE 40 MG TABLET PO (09:03)
[2023-11-17] MEDS: hydroCHLOROthiazide 12.5MG CAPSULE 12.5 MG PO (09:03)
[2023-11-17] MEDS: CALCIUM POLYCARBOPHIL 625MG TAB 1250 MG PO (09:03)
--- NOTE | 2023-11-17 11:35 | SW/DCPLANNER ---
Addendum entered by Deepali Mcneil 11/17/23 14:48: Laura brady/ [facility] stated that services will start tomorrow for this patient. Addendum entered by Katelyn Rubalcava RN 11/17/23 12:10: Patient will require home O2 and BSC. [facility]. Original Note: I spoke w/ patient and her regarding plans once medically stable for discharge. PT/OT evaluated patient and recommended home w/ home health services. Patient is agreeable to [facility] at time of discharge. Patient is expected to discharge home this afternoon. I will fax patient information/order to [facility] today.
[2023-11-17 12:00] VITALS: BP 122/49; PULSE 66; RESP 17; TEMP 36.4; O2SAT 91
--- NOTE | 2023-11-22 15:39 | CARE MANAGER ---
Unable to reach patient via phone to discuss recent discharge. Call attempted X 2. Left VM with call back information.
== END 2023-11-17 13:10 | disposition home health service (06) ==
LOC: 2ND 10:45
PROVIDERS: Nurse Practitioner; Admitting Provider Internal Medicine Adolescent Medicine; PCP Internal Medicine; Visit Provider Internal Medicine Adolescent Medicine
DX: D64.9 Anemia, unspecified (principal); E87.1 Hypo-osmolality and hyponatremia; R63.4 Abnormal weight loss; R68.81 Early satiety; R14.0 Abdominal distension (gaseous); R53.1 Weakness; R53.83 Other fatigue; I50.30 Unspecified diastolic (congestive) heart failure; I11.0 Hypertensive heart disease with heart failure; I25.10 Atherosclerotic heart disease of native coronary artery without angina pectoris; E78.5 Hyperlipidemia, unspecified; R16.0 Hepatomegaly, not elsewhere classified; E43 Unspecified severe protein-calorie malnutrition; Z95.5 Presence of coronary angioplasty implant and graft; Z79.899 Other long term (current) drug therapy; Z68.28 Body mass index [BMI] 28.0-28.9, adult; Z79.01 Long term (current) use of anticoagulants; R62.7 Adult failure to thrive
CPT/HCPCS: G0379; 36415; 71250; 74160; 74176; 76705; 80048; 80053; 80074; 82140; 82272; 82378; 83735; 83880; 85014; 85018; 85025; 85610; 97110; 97162; 97166; 97530; G0328; G0378; J2270; J2405; J3475; J3480; Q9967

== ENCOUNTER 2023-11-29 11:05 | Outpatient (CLI) | payer MEDICARE, SELFPAY ==
[2023-11-29 11:13] LABS: Microscopic, Urine URINE MICROSCOPIC (MICROSCOPIC)
[2023-11-29 11:21] LABS: Appearance,Urine SL CLOUDY (Clear); Blood, Urine Negative (Negative); Color,Urine BROWN (Yellow); Glucose,Urine (UA) TRACE (Negative); Ketones,Urine TRACE (Negative); Leukocyte Esterase,Urine 1+ (Negative); Nitrate,Urine POSITIVE (Negative); PH,Urine 6.5 (5.0-8.5); Protein,Urine TRACE (Negative); Specific Gravity, Urine >= 1.030 (1.005-1.030)
[2023-11-29 11:27] LABS: Bilirubin,Urine 2+ (Negative)
[2023-11-29 11:37] LABS: Bacteria,Urine 3+ /lpf; RBC,Urine Occasional #/hpf (0-3); Squamous Epithelial Cell,Urine Occasional #/hpf (0-5); Transitional Epi Cells,Urine OCC #/lpf (0-3)
== END 2023-11-29 23:59 | disposition home or self-care (01) ==
LOC: LAB.DROPOF 11:07
PROVIDERS: PCP Family Medicine Hospice and Palliative Medicine; Visit Provider Family Medicine Hospice and Palliative Medicine
DX: C22.8 Malignant neoplasm of liver, primary, unspecified as to type (principal)
CPT/HCPCS: 81001; 87086; 87088; 87186